=== PATIENT | female | born 1940 | race Caucasian/White ===

== ENCOUNTER 2016-07-28 10:48 | Inpatient (IN) | payer MEDICARE, SELFPAY ==
--- NOTE | 2016-07-28 11:33 | ED ---
Psych HPI - General Chief Complaint: Psychiatric Symptoms Stated Complaint: Mental Health Time Seen by Provider: 07/28/16 10:55 Source: patient, EMS Mode of arrival: EMS - History of Present Illness Initial Comments: She stated that she been thinking about bad things, suicidal ideation has crossed her mind she has a history of suicidal attempt back when she was 16 years old. She does have a history of depression and seizures sees Dr. Roy herself and her had argument she denies any alcohol or street drug use at this point. She is weak about suicidal ideation, she said she does not have any plan at this point. Denies any headaches no neck pain no chest pain or shortness of breath no other medical complaints at all - Related Data Home Medications Medication Instructions Recorded Confirmed Levothyroxine Sodium [Synthroid] 25 mcg PO DAILY 01/20/16 07/28/16 Lisinopril [Prinivil] 5 mg PO HS 01/20/16 07/28/16 metFORMIN HCL [Glucophage] 250 mg PO AC-BRKFST 01/20/16 07/28/16 Anastrozole [Arimidex] 1 mg PO HS 07/28/16 07/28/16 Cholecalciferol [Vitamin D3] 2,000 unit PO HS 07/28/16 07/28/16 Ipratropium-Albuterol Nebulize 3 ml INHALATION RT-DAILY 07/28/16 07/28/16 [Duoneb 0.5 mg-3 mg/3 ml Soln] Loratadine [Claritin] 10 mg PO DAILY 07/28/16 07/28/16 Metoprolol Tartrate [Lopressor] 25 mg PO HS 07/28/16 07/28/16 Omeprazole 40 mg PO DAILY 07/28/16 07/28/16 QUEtiapine [SEROquel] 100 mg PO HS 07/28/16 07/28/16 Zzzquil 2 cap PO HS 07/28/16 07/28/16 lamoTRIgine [LaMICtal] 25 mg PO HS 07/28/16 07/28/16 Previous Rx's Medication Instructions Recorded Aspirin 81 mg PO DAILY chew 01/29/16 Atorvastatin [Lipitor] 20 mg PO HS tab 01/29/16 Citalopram Hydrobromide [CeleXA] 20 mg PO DAILY #30 tab 08/12/16 Clopidogrel [Plavix] 75 mg PO DAILY #0 tab 01/29/16 Donepezil [Aricept] 10 mg PO HS #0 tab 01/29/16 Ferrous Sulfate [Iron (65 MG 325 mg PO DAILY@1200 tab 01/29/16 Elemental)] Folic Acid 1 mg PO DAILY@1200 tab 01/29/16 buPROPion SR [Wellbutrin SR] 100 mg PO BID #60 tablet.er 01/29/16 Allergies Allergy/AdvReac Type Severity Reaction Status Date / Time No Known Allergies Allergy Verified 07/28/16 11:17 Review of Systems ROS Statement: Those systems with pertinent positive or pertinent negative responses have been documented in the HPI. ROS Other: All systems not noted in ROS Statement are negative. Past Medical History Past Medical History: Cancer, CVA/TIA, Diabetes Mellitus, GERD/Reflux, Hyperlipidemia, Hypertension, Osteoarthritis (OA) Additional Past Medical History / Comment(s): Pt states she was having "drop attacks" before seroquel History of Any Multi-Drug Resistant Organisms: ESBL Date of last positivie culture/infection: 01/20/16 MDRO Source:: urine ESBL E.COLI Past Surgical History: Breast Surgery, Heart Catheterization, Tubal Ligation Additional Past Surgical History / Comment(s): Left mastectomy with later breast implant Past Anesthesia/Blood Transfusion Reactions: No Reported Reaction Past Psychological History: Anxiety, Bipolar, Depression Smoking Status: Current every day smoker Past Alcohol Use History: None Reported Past Drug Use History: None Reported General Exam - General Exam Comments Initial Comments: General: The patient is awake and alert, in no distress, and does not appear acutely ill. Skin: Skin is warm and dry and no rashes or lesions are noted. Eye: Pupils are equal, round and reactive to light, extra-ocular movements are intact; there is normal conjunctiva bilaterally. Ears, nose, mouth and throat: There are moist mucous membranes and no oral lesions. Neck: The neck is supple, there is no tenderness or JVD. Cardiovascular: There is a regular rate and rhythm. No murmur, rub or gallop is appreciated. Respiratory: To auscultation bilateral, no wheezing no rhonchi no distress respiratory kenyon noticed Gastrointestinal: Soft, non-distended, non-tender abdomen without masses or organomegaly noted. There is no rebound or guarding present. Bowel sounds are unremarkable. Neurological: CN II-XII intact, Cranial nerves III through XII are intact. There are no obvious motor or sensory deficits. Coordination appears grossly intact. Speech is normal. Psychiatric: Cooperative, instead depressed, positive suicidal ideation and she seems angry towards her family Limitations: no limitations Course Vital Signs 07/28/16 10:50 Temperature 97.9 F Pulse Rate 78 Respiratory 16 Rate Blood Pressure 168/79 O2 Sat by Pulse 97 Oximetry Discussed with the department of psychiatry, they intend to admit her, agree with the she will need inpatient eval Medical Decision Making - Lab Data Lab Results 07/28/16 Range/Units 11:46 Urine Opiates Screen Not Detected (NotDetected) Ur Oxycodone Screen Not Detected (NotDetected) Urine Methadone Screen Not Detected (NotDetected) Ur Propoxyphene Screen Not Detected (NotDetected) Ur Barbiturates Screen Not Detected (NotDetected) U Tricyclic Antidepress Detected H (NotDetected) Ur Phencyclidine Scrn Not Detected (NotDetected) Ur Amphetamines Screen Not Detected (NotDetected) U Methamphetamines Scrn Not Detected (NotDetected) U Benzodiazepines Scrn Detected H (NotDetected) Urine Cocaine Screen Not Detected (NotDetected) U Marijuana (THC) Screen Not Detected (NotDetected) Disposition Clinical Impression: Depression, Suicidal ideation Disposition: ADMITTED IP TO THIS HOSP Condition: Good
[2016-07-28] MEDS ORDERED: MAGNESIUM HYDROXIDE 2,400 MG/10 ML CUP PO PRN (14:59)
[2016-07-28] MEDS ORDERED: ACETAMINOPHEN TAB 325 MG TAB PO PRN (14:59)
[2016-07-28] MEDS ORDERED: MAG HYDROX/AL HYDROX/SIMETH 30 ML CUP PO PRN (14:59)
[2016-07-28] MEDS: NICOTINE 21MG/24HR PATCH TRANSDERM SCH (16:02)
[2016-07-28 18:06] LABS: Glucose,Whole Blood 104 mg/dL (75-99)
[2016-07-28 19:58] LABS: Glucose,Whole Blood 120 mg/dL (75-99)
[2016-07-28] MEDS: diphenhydrAMINE 25 MG CAP PO SCH (20:45)
[2016-07-28] MEDS: DONEPEZIL 10 MG TAB PO SCH (20:45)
[2016-07-28] MEDS: LISINOPRIL 5 MG TAB PO SCH (20:45)
[2016-07-28] MEDS: METOPROLOL TARTRATE 25 MG TAB PO SCH (20:45)
[2016-07-28] MEDS: QUEtiapine 100 MG TAB PO SCH (20:45)
[2016-07-28] MEDS: ATORVASTATIN 20 MG TAB PO SCH (20:45)
[2016-07-28] MEDS: ANASTROZOLE 1 MG TAB PO SCH (20:46)
[2016-07-28] MEDS: CHOLECALCIFEROL 1,000 UNIT TAB PO SCH (20:46)
[2016-07-28] MEDS: buPROPion SR 100 MG TABLET.ER PO SCH (20:46)
[2016-07-28] MEDS: lamoTRIgine 25 MG TAB PO SCH (20:46)
[2016-07-28] MEDS ORDERED: cloNIDine HCL 0.1 MG TAB PO STA (22:32)
[2016-07-29] MEDS: LEVOTHYROXINE 25 MCG TAB PO SCH (05:43)
[2016-07-29] MEDS: PANTOPRAZOLE 40 MG TABLET PO SCH (08:05)
[2016-07-29] MEDS: metFORMIN 500 MG TAB PO SCH (08:05)
[2016-07-29 10:08] LABS: Anisocytosis Slight; Basophils # (A) 0.1 k/uL (0-0.2); Basophils % (A) 1 %; CH 30.5; CHCM 32.1; Eosinophils # (A) 0.3 k/uL (0-0.7); Eosinophils % (A) 3 %; HDW 2.65; HGB 10.7 gm/dL (11.4-16.0); Luc # (Auto) 0.25; Luc % (Auto) 3; Lymphocytes # (A) 2.1 k/uL (1.0-4.8); Lymphocytes % (A) 24 %; MCHC 31.4 g/dL (31.0-37.0); MCV 95.4 fL (80.0-100.0); Mean Platelet Volume 6.8; Monocytes # (A) 0.3 k/uL (0-1.0); Monocytes % (A) 4 %; Neutrophils # (A) 5.8 k/uL (1.3-7.7); Neutrophils % (A) 66 %; RBC 3.56 m/uL (3.80-5.40); RDW 16.3 % (11.5-15.5); WBC 8.9 k/uL (3.8-10.6); WBC (Perox) 9.42
[2016-07-29] MEDS: LORATADINE 10 MG TAB PO SCH (10:13)
[2016-07-29] MEDS: buPROPion SR 100 MG TABLET.ER PO SCH ×2 (10:13→20:51)
[2016-07-29] MEDS: CLOPIDOGREL 75 MG TAB PO SCH (10:13)
[2016-07-29] MEDS: NICOTINE 21MG/24HR PATCH TRANSDERM SCH (10:13)
[2016-07-29] MEDS: ASPIRIN 81 MG CHEW PO SCH (10:13)
[2016-07-29] MEDS: CITALOPRAM HYDROBROMIDE 20 MG TAB PO SCH (10:13)
[2016-07-29] MEDS: IPRATROPIUM-ALBUTEROL 3 ML NEB INHALATION SCH (10:20)
--- NOTE | 2016-07-29 10:22 | P.HP ---
Psychiatric H&P - . History & Physical: Allergies Allergy/AdvReac Type Severity Reaction Status Date / Time No Known Allergies Allergy Verified 07/28/16 11:17 Vital Signs Temp 97.5 F L 07/29/16 07:17 Pulse 64 07/29/16 07:17 Resp 16 07/29/16 07:17 BP 115/59 07/29/16 07:17 Pulse Ox 93 L 07/29/16 07:17 Intake & Output 07/28/16 07/29/16 07/29/16 18:59 06:59 18:59 Weight 68.2 kg Laboratory Last Values WBC 8.9 k/uL (3.8-10.6) 07/29/16 09: RBC 3.56 m/uL (3.80-5.40) L 07/29/16 09:27 Hgb 10.7 gm/dL (11.4-16.0) L 07/29/16 09:27 Hct 34.0 % (34.0-46.0) 07/29/16 09: MCV 95.4 fL (80.0-100.0) 07/29/16 09: MCH 30.0 pg (25.0-35.0) 07/29/16 09: MCHC 31.4 g/dL (31.0-37.0) 07/29/16 09: RDW 16.3 % (11.5-15.5) H 07/29/16 09:27 Plt Count 305 k/uL (150-450) 07/29/16 09: Neutrophils % 66 % 07/29/16 09: Lymphocytes % 24 % 07/29/16 09:27 Monocytes % 4 % 07/29/16 09:27 Eosinophils % 3 % 07/29/16 09:27 Basophils % 1 % 07/29/16 09:27 Neutrophils # 5.8 k/uL (1.3-7.7) 07/29/16 09: Lymphocytes # 2.1 k/uL (1.0-4.8) 07/29/16 09: Monocytes # 0.3 k/uL (0-1.0) 07/29/16 09: Eosinophils # 0.3 k/uL (0-0.7) 07/29/16 09: Basophils # 0.1 k/uL (0-0.2) 07/29/16 09:27 Anisocytosis Slight 07/29/16 09:27 POC Glucose (mg/dL) 120 mg/dL (75-99) H 07/28/16 19:55 POC Glu Perinatology Physician ID Edmar Olmos 07/28/16 19:55 Urine Opiates Screen Not Detected (NotDetected) 07/28/16 11:46 Ur Oxycodone Screen Not Detected (NotDetected) 07/28/16 11:46 Urine Methadone Screen Not Detected (NotDetected) 07/28/16 11:46 Ur Propoxyphene Screen Not Detected (NotDetected) 07/28/16 11:46 Ur Barbiturates Screen Not Detected (NotDetected) 07/28/16 11:46 U Tricyclic Antidepress Detected (NotDetected) H 07/28/16 11:46 Ur Phencyclidine Scrn Not Detected (NotDetected) 07/28/16 11:46 Ur Amphetamines Screen Not Detected (NotDetected) 07/28/16 11:46 U Methamphetamines Scrn Not Detected (NotDetected) 07/28/16 11:46 U Benzodiazepines Scrn Detected (NotDetected) H 07/28/16 11:46 Urine Cocaine Screen Not Detected (NotDetected) 07/28/16 11:46 U Marijuana (THC) Screen Not Detected (NotDetected) 07/28/16 11:46 07/29/16 10:10 IDENTIFYING DATA: This patient is a 75-year-old female who presented to the emergency room reporting suicidal thoughts and feeling overwhelmed. She was subsequently admitted to the mental health unit. HPI: The patient has a history of numerous inpatient admissions. She presents reporting acute suicidal ideation and tells me today that she feels that she is here because of problems with her . She states "he is on my case" and "we are not getting along". These feelings triggered suicidal thoughts and she did not report feeling safe. She does have a clear history of major depressive episodes. I was able to review psychiatric evaluations that were performed on this unit from March 2014 and November 2014. The diagnoses differed between major depressive disorder and bipolar disorder. There is documentation of some cognitive impairment. The patient is unable to provide any history regarding hypomanic or manic episodes but does endorse being depressed. She is not aware of her current psychotropic medications and Adama me to call her . She reports that she is under the care of Dr. Rubio her outpatient psychiatrist and saw him as recently as last week. She endorses some sleep disturbance appetite stable. She states she feels very frightful when she is alone. She endorses some visual hallucinations at times where in the dark she thinks there may be shadows of men in the room and they will disappear when the latest turned on. At time she feels she hears knocking on the door and no one is there when she checks it. She reports no feelings of anxiety or anxiousness she is endorsing no panic attacks. The patient presents as an impaired historian to some extent. She states there are no firearms at home. PAST PSYCHIATRIC HISTORY: As an estimate she's had approximately 8 inpatient admissions. Her last 2 were in November 2014 in March 2014. She has a remote history of a suicide attempt via overdose numerous years ago. We believe she is currently on Celexa 20 mg daily, Wellbutrin SR 100 mg twice daily, Aricept 10 mg daily, Lamictal 25 mg at bedtime, Seroquel 100 mg at bedtime. She has also previously been treated with Lexapro and Wellbutrin XL in the past. She is unable to provide any other history regarding medications. She reports seeing Dr. Rubio for psychiatric services and works with a therapist named Daquan at [facility]. PMH: The patient is unable to provide any information. It appears she has a history of TIA/stroke, GERD, diabetes, hyperlipidemia, hypertension, osteoarthritis, she reports a recent abdominal surgery that may have involved her aorta. She is unsure if it was a repair of an aneurysm. ALLERGIES: NO KNOWN DRUG ALLERGIES MEDICATIONS: Refer to [facility] CHEMICAL DEPENDENCY HISTORY: She reports no use of alcohol or illicit drugs she' s never been placed in residential treatment for chemical dependency reasons FAMILY PSYCHIATRIC HISTORY: Her son has unspecified mental illness she states he is homeless down in [place], no suicides in the family FAMILY CHEMICAL DEPENDENCY HISTORY: None reported SOCIAL HISTORY: The patient is 75 years old she's been for 35 years. She has 2 children a daughter who lives in [facility] and a son who lives in [place] she is retired. 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 She has a high school education and an associates degree. No history of service. She was born and raised in the [place]. She reports that her is supportive but she finds them frustrating lately. No reported legal history, no reported abuse history. MENTAL STATUS EXAM: The patient is a short statured female appearing her stated age. She is mildly disheveled hygiene fair. Eye contact staring in nature. She endorses her mood is down frustrated and overwhelmed. Affect is bland. She demonstrated no tremor or any psychomotor agitation. She presented with suicidal ideation but feels safe now in the hospital. She reports no homicidal ideation intent or plan. She is endorsing no current auditory or visual hallucinations but states she has had some in the past. She has fears of not being safe when alone. She is endorsing no racing thoughts. Speech is fluent and spontaneous nonpressured. Thought process can be perseverative and circumstantial no tangential thinking loose associations or flight of ideas. She demonstrates no verbal or physical aggressiveness. Insight and judgment limited. Cognitively she is oriented to person place and date. She was able to register 3 words after 2 trials. After delay of approximately 3 minutes she can recall one word spontaneously she got another with a verbal cue and another with a multiple choice cue there was one intrusion area and she was able to successfully draw clock erectly number it in place the hands were designated. She was able to name 5 major cities in the [place] however that did take more time than expected. She was not able to name the months of the year backwards she could name the days of the week backwards. STRENGTHS/WEAKNESSES: Strengths: Housing, income weaknesses: Impaired coping skills suspect some cognitive impairment INTELLECTUAL FUNCTIONING: Average IMPRESSIONS: [] 1. Depression unspecified, rule out major depressive disorder recurrent versus bipolar depression, rule out mild neurocognitive impairment 2. Numerous medical comorbidities 3. Psychosocial dysfunction due to psychiatric symptoms PLAN: The patient has been admitted to the mental health unit voluntarily. I have placed a call with her outpatient psychiatrist there was no answer a voicemail was left. I did place a call with her no voicemail was available to leave a message. Temporarily we will continue her Celexa 20 mg daily, Wellbutrin SR 100 mg twice daily, Aricept 10 mg daily, Lamictal 25 mg daily, Seroquel 100 mg at bedtime. She is on several psychotropic medications we will look for an opportunity to simplify her medication regimen. We will request a routine medical consultation. Her will be involved in treatment planning and discharge planning as she will allow. We will monitor her for safety and encourage her participation in the milieu. Social work will complete a psychosocial assessment. Vital signs reviewed, lab values reviewed.
[2016-07-29 10:34] LABS: Calcium 9.6 mg/dL (8.4-10.2); Potassium 3.7 mmol/L (3.5-5.1); Total Bilirubin 0.4 mg/dL (0.2-1.3); Total Protein 6.9 g/dL (6.3-8.2)
--- NOTE | 2016-07-29 11:49 | P.CONS ---
History of Present Illness - Reason for Consult Consult date: 07/29/16 Medical management Requesting physician: Logan Bell - Chief Complaint Depression with suicidal thoughts - History of Present Illness This is a 75-year-old female, patient of Dr. Leonard. She has a known past medical history of diabetes mellitus type 2, hypertension, COPD, depression and bipolar. Also history of CVA and chronic kidney disease. Patient presents to the emergency room with complaints of depression and suicidal thoughts. She's been having arguments with her . Blood pressure on admission was around 216/94. Patient reports that she was arguing even in the emergency room with her . She was given clonidine. Blood pressures have improved. She also was restarted on her home lisinopril. Blood pressure this morning is 115/ 59. Patient denies any chest pain, shortness of breath, nausea or vomiting. Denies any bowel movement changes or urinary symptoms. Denies any fevers chills or sweats. We will consulted for medical management. Review of Systems Please refer to HPI otherwise unremarkable Past Medical History Past Medical History: Cancer, CVA/TIA, Diabetes Mellitus, GERD/Reflux, Hyperlipidemia, Hypertension, Osteoarthritis (OA) Additional Past Medical History / Comment(s): Pt states she was having "drop attacks" before seroquel History of Any Multi-Drug Resistant Organisms: ESBL Year Discovered:: 01/20/16 MDRO Source:: urine ESBL E.COLI Past Surgical History: Breast Surgery, Heart Catheterization, Tubal Ligation Additional Past Surgical History / Comment(s): Left mastectomy with later breast implant Past Anesthesia/Blood Transfusion Reactions: No Reported Reaction Past Psychological History: Anxiety, Bipolar, Depression Smoking Status: Current every day smoker Past Alcohol Use History: None Reported Past Drug Use History: None Reported Medications and Allergies Home Medications Medication Instructions Recorded Confirmed Type Levothyroxine Sodium [Synthroid] 25 mcg PO DAILY 01/20/16 07/28/16 History Lisinopril [Prinivil] 5 mg PO HS 01/20/16 07/28/16 History metFORMIN HCL [Glucophage] 250 mg PO AC-BRKFST 01/20/16 07/28/16 History Anastrozole [Arimidex] 1 mg PO HS 07/28/16 07/28/16 History Cholecalciferol [Vitamin D3] 2,000 unit PO HS 07/28/16 07/28/16 History Ipratropium-Albuterol Nebulize 3 ml INHALATION RT-DAILY 07/28/16 07/28/16 History [Duoneb 0.5 mg-3 mg/3 ml Soln] Loratadine [Claritin] 10 mg PO DAILY 07/28/16 07/28/16 History Metoprolol Tartrate [Lopressor] 25 mg PO HS 07/28/16 07/28/16 History Omeprazole 40 mg PO DAILY 07/28/16 07/28/16 History QUEtiapine [SEROquel] 100 mg PO HS 07/28/16 07/28/16 History Zzzquil 2 cap PO HS 07/28/16 07/28/16 History lamoTRIgine [LaMICtal] 25 mg PO HS 07/28/16 07/28/16 History Allergies Allergy/AdvReac Type Severity Reaction Status Date / Time No Known Allergies Allergy Verified 07/28/16 11:17 Physical Exam Vitals: Vital Signs Temp Pulse Pulse Resp BP BP Pulse Ox 07/29/16 10:32 78 07/29/16 10:20 78 07/29/16 07:17 97.5 F L 64 16 115/59 93 L 07/28/16 23:15 137/63 07/28/16 22:01 82 18 215/98 97 07/28/16 20:49 102 H 18 216/94 07/28/16 14:40 70 16 187/81 07/28/16 14:12 97.8 F 71 16 152/76 96 Intake and Output 07/28/16 07/29/16 07/29/16 22:59 06:59 14:59 Other: Weight 68.2 kg Head normocephalic Neck supple Lungs clear to auscultation bilaterally no wheezing or crackles Heart regular rate and rhythm S1-S2, no rub or gallop Abdomen is soft nontender nondistended positive bowel sounds no hepatosplenomegaly Extremities no edema Neuro alert and orientated to 3 Psychiatric disheveled flat affect Results CBC & Chem 7: 07/29/16 09:27 07/29/16 09:27 Labs: Abnormal Lab Results - Last 24 Hours (Table) 07/28/16 07/28/16 07/29/16 Range/Units 18:03 19:55 09:27 RBC 3.56 L (3.80-5.40) m/uL Hgb 10.7 L (11.4-16.0) gm/dL RDW 16.3 H (11.5-15.5) % Creatinine (0.52-1.04) mg/dL Glucose (74-99) mg/dL POC Glucose (mg/dL) 104 H 120 H (75-99) mg/dL 07/29/16 Range/Units 09:27 RBC (3.80-5.40) m/uL Hgb (11.4-16.0) gm/dL RDW (11.5-15.5) % Creatinine 1.20 H (0.52-1.04) mg/dL Glucose 132 H (74-99) mg/dL POC Glucose (mg/dL) (75-99) mg/dL Assessment and Plan Plan: 1. Depression with suicidal ideation: Patient has been admitted to the psychiatric unit. Continue with current psychiatric management 2. Hypothyroidism. Continue her Synthroid. TSH level within normal range 3. History of CVA resume Plavix 4. Chronic kidney disease stage IIIB 5. History of dementia 6. Essential hypertension with episode of accelerated hypertension present on admission. Elevated blood pressure likely due to patient's argument with her . Did show improvement with the clonidine. Lisinopril and metoprolol has been resumed. Blood pressures are currently stable. Continue to monitor. 7. History of COPD stable no evidence of exacerbation continue with her breathing treatments 8. Nicotine dependence: Counseled patient for greater than 3 minutes regarding smoking cessation. Continue nicotine patch 9. Iron deficiency Anemia: Hemoglobin of 10.7 no active signs of bleeding. We' ll check iron studies. And repeat CBC in a.m. continue her ferrous sulfate 325 mg daily for now 10. Diabetes mellitus type 2 continue metformin Thank you for this consultation. We will continue to follow along as needed. We'll follow-up with labs in a.m. Time with Patient: Greater than 30 (Greater than 50% of the total time spent in counseling and coordination of care.I performed an examination of the patient and discussed their management with the physician Veneer Department Manager. I have reviewed the Physician Veneer Department Manager's notes and agree with the documented findings and plan of care)
[2016-07-29] MEDS: FOLIC ACID 1 MG TAB PO SCH (12:40)
[2016-07-29] MEDS: FERROUS SULFATE 325 MG TAB PO SCH (12:41)
[2016-07-29] MEDS: DONEPEZIL 10 MG TAB PO SCH (20:51)
[2016-07-29] MEDS: LISINOPRIL 5 MG TAB PO SCH (20:51)
[2016-07-29] MEDS: CHOLECALCIFEROL 1,000 UNIT TAB PO SCH (20:51)
[2016-07-29] MEDS: ANASTROZOLE 1 MG TAB PO SCH (20:51)
[2016-07-29] MEDS: ATORVASTATIN 20 MG TAB PO SCH (20:51)
[2016-07-29] MEDS: METOPROLOL TARTRATE 25 MG TAB PO SCH (20:52)
[2016-07-29] MEDS: diphenhydrAMINE 25 MG CAP PO SCH (21:10)
[2016-07-29] MEDS: QUEtiapine 100 MG TAB PO SCH (21:10)
[2016-07-29] MEDS: lamoTRIgine 25 MG TAB PO SCH (21:13)
[2016-07-29 22:13] LABS: Glucose,Whole Blood 144 mg/dL (75-99)
[2016-07-30] MEDS: LEVOTHYROXINE 25 MCG TAB PO SCH (06:12)
[2016-07-30 06:19] LABS: Glucose,Whole Blood 125 mg/dL (75-99)
[2016-07-30] MEDS: INSULIN LISPRO (humaLOG) 300 UNIT/3 ML VIAL SQ SCH ×4 (08:07→20:50)
[2016-07-30] MEDS: metFORMIN 500 MG TAB PO SCH (08:08)
[2016-07-30] MEDS: PANTOPRAZOLE 40 MG TABLET PO SCH (08:44)
[2016-07-30] MEDS: LORATADINE 10 MG TAB PO SCH (08:45)
[2016-07-30] MEDS: CITALOPRAM HYDROBROMIDE 20 MG TAB PO SCH (08:45)
[2016-07-30] MEDS: ASPIRIN 81 MG CHEW PO SCH (08:45)
[2016-07-30] MEDS: buPROPion SR 100 MG TABLET.ER PO SCH ×2 (08:45→20:53)
[2016-07-30] MEDS: CLOPIDOGREL 75 MG TAB PO SCH (08:45)
[2016-07-30] MEDS: NICOTINE 21MG/24HR PATCH TRANSDERM SCH (08:46)
[2016-07-30 08:55] LABS: Anisocytosis Slight; Basophils # (A) 0.1 k/uL (0-0.2); Basophils % (A) 1 %; CH 30.4; CHCM 31.9; Eosinophils # (A) 0.4 k/uL (0-0.7); Eosinophils % (A) 4 %; HCT 34.9 % (34.0-46.0); HDW 2.63; HGB 11.3 gm/dL (11.4-16.0); Luc # (Auto) 0.25; Luc % (Auto) 3; Lymphocytes # (A) 2.9 k/uL (1.0-4.8); Lymphocytes % (A) 30 %; MCH 30.9 pg (25.0-35.0); MCHC 32.2 g/dL (31.0-37.0); MCV 95.9 fL (80.0-100.0); Mean Platelet Volume 6.3; Monocytes # (A) 0.3 k/uL (0-1.0); Monocytes % (A) 3 %; Neutrophils # (A) 5.8 k/uL (1.3-7.7); Neutrophils % (A) 60 %; RBC 3.64 m/uL (3.80-5.40); RDW 16.4 % (11.5-15.5); WBC 9.7 k/uL (3.8-10.6)
--- NOTE | 2016-07-30 12:08 | P.PN ---
Progress Note - Text Interval history: The patient is found at the front desk representative she follows me to an interview room. She states her mood is good and she would like to be discharged today. We discussed that that is not part of our plan and she requires further evaluation. I did have the opportunity to speak with Dr. Andres her outpatient psychiatrist. He had just recently seen the patient last week. He recommended no further medication changes but thought that the dynamic between her and her was the greatest precipitant for her presenting to the hospital. The patient reports that she slept last evening she states her appetite is stable. She is reporting no current hallucinations. Mental status exam: The patient is alert she seated calmly in the chair she reports her mood is "good". Affect is brighter. She is endorsing no acute suicidal or homicidal ideation. She does recognize that her and her have been having more verbal disagreements. She is reporting no hallucinations at this time. She does seem to struggle with some short-term memory impairment. There is no verbal or physical aggressiveness. Plan: The patient will continue on her current psychotropic medications we will consider titrating the Lamictal further for further stabilization of mood. Social work will be asked to arrange a support meeting involving family members. We will monitor her for safety and encourage her participation in the milieu. Vital signs reviewed.
[2016-07-30 12:12] LABS: Glucose,Whole Blood 93 mg/dL (75-99)
[2016-07-30] MEDS: IPRATROPIUM-ALBUTEROL 3 ML NEB INHALATION SCH (12:36)
[2016-07-30] MEDS: FERROUS SULFATE 325 MG TAB PO SCH (12:47)
[2016-07-30] MEDS: FOLIC ACID 1 MG TAB PO SCH (12:47)
[2016-07-30 13:17] LABS: Hemoglobin A1C 6.4 % (4.2-6.1)
[2016-07-30 13:51] VITALS: BMI 27.5
[2016-07-30 17:43] LABS: Glucose,Whole Blood 99 mg/dL (75-99)
[2016-07-30 20:38] LABS: Glucose,Whole Blood 146 mg/dL (75-99)
[2016-07-30] MEDS: DONEPEZIL 10 MG TAB PO SCH (20:53)
[2016-07-30] MEDS: METOPROLOL TARTRATE 25 MG TAB PO SCH (20:53)
[2016-07-30] MEDS: LISINOPRIL 5 MG TAB PO SCH (20:53)
[2016-07-30] MEDS: ATORVASTATIN 20 MG TAB PO SCH (20:53)
[2016-07-30] MEDS: ANASTROZOLE 1 MG TAB PO SCH (20:53)
[2016-07-30] MEDS: CHOLECALCIFEROL 1,000 UNIT TAB PO SCH (20:53)
[2016-07-30] MEDS: lamoTRIgine 25 MG TAB PO SCH (20:55)
[2016-07-30] MEDS: QUEtiapine 100 MG TAB PO SCH (20:55)
[2016-07-30] MEDS: diphenhydrAMINE 25 MG CAP PO SCH (20:55)
[2016-07-31 06:32] LABS: Glucose,Whole Blood 126 mg/dL (75-99)
[2016-07-31] MEDS: LEVOTHYROXINE 25 MCG TAB PO SCH (06:44)
[2016-07-31] MEDS: PANTOPRAZOLE 40 MG TABLET PO SCH (08:08)
[2016-07-31] MEDS: INSULIN LISPRO (humaLOG) 300 UNIT/3 ML VIAL SQ SCH ×4 (08:08→21:47)
[2016-07-31] MEDS: metFORMIN 500 MG TAB PO SCH (08:08)
[2016-07-31] MEDS: IPRATROPIUM-ALBUTEROL 3 ML NEB INHALATION SCH (08:45)
[2016-07-31] MEDS: NICOTINE 21MG/24HR PATCH TRANSDERM SCH (09:53)
[2016-07-31] MEDS: ASPIRIN 81 MG CHEW PO SCH (09:53)
[2016-07-31] MEDS: CITALOPRAM HYDROBROMIDE 20 MG TAB PO SCH (09:54)
[2016-07-31] MEDS: buPROPion SR 100 MG TABLET.ER PO SCH ×2 (09:54→21:49)
[2016-07-31] MEDS: LORATADINE 10 MG TAB PO SCH (09:54)
[2016-07-31] MEDS: CLOPIDOGREL 75 MG TAB PO SCH (09:54)
--- NOTE | 2016-07-31 10:47 | P.PN ---
Progress Note - Text Interval history: The patient's is found in the hallway she follows me to an interview room. She reports she had an unpleasant visit with her last evening. She states after enough time elapsed she told him to go home. Apparently they were arguing over her close being dirty in the dresser. She states that she did not invite him to come up again tonight. Without insight subsequently she asks when she can go home. She reports sleeping and eating adequately. She reports compliant with medication. Mental status exam: The patient is alert upon approach she does not recall who I am but then later's states "you're my doctor". She has trouble recalling my name despite this being her third visit. She reports a frustrated mood she is reporting no suicidal or homicidal ideation. She has a mildly disheveled appearance she is dressed in her own clothing. Speech is spontaneous nonpressured. She is brief and her speech and therefore it appears linear. Insight and judgment are limited. She is oriented to place she initially names the day the week as Monday she names the correct month and year. There is no verbal or physical aggressiveness she is easily directed in the interview. Plan: The patient will continue on her current medications however I will titrate the Lamictal to 25 mg twice daily. Vital signs reviewed. We will encourage her participation in the milieu although she states she does not plan on attending many groups today. We will await input from family regarding interventions to be made prior to discharge.
[2016-07-31 12:31] LABS: Glucose,Whole Blood 92 mg/dL (75-99)
[2016-07-31] MEDS: FERROUS SULFATE 325 MG TAB PO SCH (12:41)
[2016-07-31] MEDS: FOLIC ACID 1 MG TAB PO SCH (12:41)
[2016-07-31 17:44] LABS: Glucose,Whole Blood 100 mg/dL (75-99)
[2016-07-31 20:07] LABS: Glucose,Whole Blood 129 mg/dL (75-99)
[2016-07-31] MEDS: ANASTROZOLE 1 MG TAB PO SCH (21:48)
[2016-07-31] MEDS: ATORVASTATIN 20 MG TAB PO SCH (21:49)
[2016-07-31] MEDS: CHOLECALCIFEROL 1,000 UNIT TAB PO SCH (21:50)
[2016-07-31] MEDS: lamoTRIgine 25 MG TAB PO SCH (21:51)
[2016-07-31] MEDS: diphenhydrAMINE 25 MG CAP PO SCH (21:51)
[2016-07-31] MEDS: LISINOPRIL 5 MG TAB PO SCH (21:51)
[2016-07-31] MEDS: METOPROLOL TARTRATE 25 MG TAB PO SCH (21:51)
[2016-07-31] MEDS: DONEPEZIL 10 MG TAB PO SCH (21:51)
[2016-07-31] MEDS: QUEtiapine 100 MG TAB PO SCH (21:52)
[2016-08-01 05:55] LABS: Glucose,Whole Blood 124 mg/dL (75-99)
[2016-08-01] MEDS: LEVOTHYROXINE 25 MCG TAB PO SCH (05:55)
[2016-08-01] MEDS: INSULIN LISPRO (humaLOG) 300 UNIT/3 ML VIAL SQ SCH ×4 (08:49→20:35)
[2016-08-01] MEDS: IPRATROPIUM-ALBUTEROL 3 ML NEB INHALATION SCH (08:56)
[2016-08-01] MEDS: NICOTINE 21MG/24HR PATCH TRANSDERM SCH (09:36)
[2016-08-01] MEDS: metFORMIN 500 MG TAB PO SCH (09:36)
[2016-08-01] MEDS: buPROPion SR 100 MG TABLET.ER PO SCH ×2 (09:37→20:50)
[2016-08-01] MEDS: ASPIRIN 81 MG CHEW PO SCH (09:37)
[2016-08-01] MEDS: CLOPIDOGREL 75 MG TAB PO SCH (09:37)
[2016-08-01] MEDS: PANTOPRAZOLE 40 MG TABLET PO SCH (09:37)
[2016-08-01] MEDS: LORATADINE 10 MG TAB PO SCH (09:38)
[2016-08-01] MEDS: lamoTRIgine 25 MG TAB PO SCH ×2 (09:38→20:50)
[2016-08-01] MEDS: CITALOPRAM HYDROBROMIDE 20 MG TAB PO SCH (09:38)
--- NOTE | 2016-08-01 09:57 | P.PN ---
Progress Note - Text Interval history: The patient is found in the dining room she follows me to an interview room. She continues to voice her desire to be discharged. She did not have a visit from her last evening. A support meeting has not yet been completed. The patient is endorsing no symptoms. Yesterday I titrated her Lamictal for further mood stabilization hoping it would assist in reducing irritability and agitation especially in her home environment. Mental status exam: The patient is alert she seated calmly in the chair. She continues to ask when she will be discharged reflecting a lack of insight into her presenting symptoms. She reports that she did sleep last night appetite is stable. She has not been attending groups and states "I have no interest". She seems to not remember some of the details of our previous conversations each day. She demonstrates no verbal or physical aggressiveness. Affect is constricted. She reports no hallucinations or specific delusions. She does not present hypomanic or manic during our sessions. Overall insight and judgment is limited. Plan: We will continue the patient's psychotropic medications as written. Social work will be asked to arrange a support meeting. We need to evaluate's her ability to successfully reside with her in their home. We will continue to monitor her for safety and encourage her participation in the milieu. Vital signs reviewed.
[2016-08-01] MEDS: FOLIC ACID 1 MG TAB PO SCH (12:39)
[2016-08-01] MEDS: FERROUS SULFATE 325 MG TAB PO SCH (12:39)
[2016-08-01 12:50] LABS: Glucose,Whole Blood 101 mg/dL (75-99)
[2016-08-01 17:26] LABS: Glucose,Whole Blood 105 mg/dL (75-99)
[2016-08-01 19:54] LABS: Glucose,Whole Blood 137 mg/dL (75-99)
[2016-08-01] MEDS: ANASTROZOLE 1 MG TAB PO SCH (20:49)
[2016-08-01] MEDS: diphenhydrAMINE 25 MG CAP PO SCH (20:50)
[2016-08-01] MEDS: CHOLECALCIFEROL 1,000 UNIT TAB PO SCH (20:50)
[2016-08-01] MEDS: DONEPEZIL 10 MG TAB PO SCH (20:50)
[2016-08-01] MEDS: ATORVASTATIN 20 MG TAB PO SCH (20:50)
[2016-08-01] MEDS: LISINOPRIL 5 MG TAB PO SCH (20:51)
[2016-08-01] MEDS: METOPROLOL TARTRATE 25 MG TAB PO SCH (20:51)
[2016-08-01] MEDS: QUEtiapine 100 MG TAB PO SCH (20:51)
[2016-08-01 20:54] VITALS: RESP 18
[2016-08-02] MEDS: LEVOTHYROXINE 25 MCG TAB PO SCH (06:03)
[2016-08-02 06:41] VITALS: BP 145/64; PULSE 63; TEMP 97.5
[2016-08-02 06:41] LABS: Glucose,Whole Blood 134 mg/dL (75-99)
[2016-08-02] MEDS: INSULIN LISPRO (humaLOG) 300 UNIT/3 ML VIAL SQ SCH ×2 (08:55→13:38)
[2016-08-02] MEDS: NICOTINE 21MG/24HR PATCH TRANSDERM SCH (09:02)
[2016-08-02] MEDS: metFORMIN 500 MG TAB PO SCH (09:02)
[2016-08-02] MEDS: ASPIRIN 81 MG CHEW PO SCH (09:02)
[2016-08-02] MEDS: PANTOPRAZOLE 40 MG TABLET PO SCH (09:02)
[2016-08-02] MEDS: CLOPIDOGREL 75 MG TAB PO SCH (09:03)
[2016-08-02] MEDS: FERROUS SULFATE 325 MG TAB PO SCH (09:03)
[2016-08-02] MEDS: CITALOPRAM HYDROBROMIDE 20 MG TAB PO SCH (09:03)
[2016-08-02] MEDS: LORATADINE 10 MG TAB PO SCH (09:03)
[2016-08-02] MEDS: lamoTRIgine 25 MG TAB PO SCH (09:03)
[2016-08-02] MEDS: buPROPion SR 100 MG TABLET.ER PO SCH (09:03)
--- NOTE | 2016-08-02 10:01 | P.DS ---
Providers Date of admission: 07/28/16 13:57 Expected date of discharge: 08/02/16 Attending physician: Logan Bell Consults: 07/28/16 14:59 Consult Physician Routine Consulting Provider: Tony Lynch Consult Reason/Comments: H and P and medical management Do you want consulting provider notified?: Yes Primary care physician: Kavita Leonard - Discharge Diagnosis(es) (1) Depression Current Visit: Yes Status: Acute Priority: High Hospital Course: Brief summary of admission note: This patient is a 75-year-old female who presented to the emergency room reporting suicidal thoughts and feeling overwhelmed. She stated she was frustrated with her setting limits and stated "he is on my case". 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 She is under the care of for psychiatric medication. For full details please refer to my evaluation dated 07/29/2016. Summary of hospital course: The patient was admitted to the mental health unit she did sign in voluntarily. We reviewed her presenting symptoms and current psychotropic medications. Initially no changes were made to her psychotropic medications. She was continued on the Seroquel, Aricept, Celexa, Wellbutrin SR , Lamictal. I did have the opportunity to speak with her outpatient psychiatrist Dr. Andres. He was aware of the interpersonal challenges between the patient and her . During the hospitalization I did titrate the Lamictal further to 25 mg twice daily no other medication changes were made. He had recently seen the patient and plans to continue working with her as an outpatient. Social work was able to speak with the patient's and there is a support meeting scheduled for this afternoon. The patient was seen in medical consultation. No new recommendations were provided. The patient demonstrated no agitated behavior on the mental health unit. She remained directable she attended some groups but chose to miss several. She reported a resolution of any suicidal thoughts upon admission. Mental status exam: The patient is a female appearing her stated age. He is dressed in her own clothing hygiene grooming adequate. Speech is fluent spontaneous nonpressured. She reports no racing thoughts. Thought process for the most part is linear she can be briefly circumstantial. She demonstrates no loose associations or flight of ideas. She is endorsing no auditory or visual hallucinations she is endorsing no specific delusions. She does not appear hypomanic or manic at this time. Cognitively she is alert and oriented to person place and date. Cognitive abilities remain stable across the hospitalization. Insight and judgment have improved and are grossly intact. There is no psychomotor slowing or agitation she demonstrates no verbal or physical aggressiveness. Affect is appropriately expressive. Impressions 1. Depression unspecified, rule out major depressive disorder versus bipolar depression, rule out mild neurocognitive disorder 2. Numerous medical comorbidities 3. Psychosocial dysfunction due to psychiatric symptoms Plan: The patient will be discharged from the mental health unit today to return home with her following the family meeting. The patient will be continued on Wellbutrin SR 100 mg twice daily, Celexa 20 mg daily, Aricept 10 mg daily, Lamictal 25 mg twice daily, Seroquel 100 mg at bedtime. The patient will follow up with her outpatient therapist and psychiatrist social work will confirm she has an appointment. She will continue following with her primary care physician as needed. There is no imminent safety risk she is appropriate for transition to outpatient care. She is instructed to return to the hospital if any acute safety concerns. Patient Condition at Discharge: Stable Plan - Discharge Summary New Discharge Prescriptions: Citalopram Hydrobromide [CeleXA] 20 mg PO DAILY #30 tab Donepezil [Aricept] 10 mg PO HS #30 tab Nicotine 21Mg/24Hr Patch [Habitrol] 1 patch TRANSDERM DAILY #14 patch QUEtiapine [SEROquel] 100 mg PO HS #30 tab buPROPion SR [Wellbutrin SR] 100 mg PO BID #60 tablet.er lamoTRIgine [LaMICtal] 25 mg PO BID #60 tab Discharge Medication List Levothyroxine Sodium [Synthroid] 25 mcg PO DAILY 01/20/16 [History] Lisinopril [Prinivil] 5 mg PO HS 01/20/16 [History] metFORMIN HCL [Glucophage] 250 mg PO AC-[id number] 01/20/16 [History] Aspirin 81 mg PO DAILY chew 01/29/16 [Rx] Atorvastatin [Lipitor] 20 mg PO HS tab 01/29/16 [Rx] Clopidogrel [Plavix] 75 mg PO DAILY #0 tab 01/29/16 [Rx] Ferrous Sulfate [Iron (65 MG Elemental)] 325 mg PO DAILY@1200 tab 01/29/16 [Rx] Folic Acid 1 mg PO DAILY@1200 tab 01/29/16 [Rx] Anastrozole [Arimidex] 1 mg PO HS 07/28/16 [History] Cholecalciferol [Vitamin D3] 2,000 unit PO HS 07/28/16 [History] Ipratropium-Albuterol Nebulize [Duoneb 0.5 mg-3 mg/3 ml Soln] 3 ml INHALATION RT -DAILY 07/28/16 [History] Loratadine [Claritin] 10 mg PO DAILY 07/28/16 [History] Metoprolol Tartrate [Lopressor] 25 mg PO HS 07/28/16 [History] Omeprazole 40 mg PO DAILY 07/28/16 [History] Zzzquil 2 cap PO HS 07/28/16 [History] Citalopram Hydrobromide [CeleXA] 20 mg PO DAILY #30 tab 08/02/16 [Rx] Donepezil [Aricept] 10 mg PO HS #30 tab 08/02/16 [Rx] Nicotine 21Mg/24Hr Patch [Habitrol] 1 patch TRANSDERM DAILY #14 patch 08/02/16 [ Rx] QUEtiapine [SEROquel] 100 mg PO HS #30 tab 08/02/16 [Rx] buPROPion SR [Wellbutrin SR] 100 mg PO BID #60 tablet.er 08/02/16 [Rx] lamoTRIgine [LaMICtal] 25 mg PO BID #60 tab 08/02/16 [Rx] Follow up Appointment(s)/Referral(s): intake,intake [Other] - 1 Week [facility] [Outside] - 08/03/16 1:00 pm (08/03/16 at 100 w/[address]) Kavita Leonard DO [Primary Care Provider] - 1-2 days
[2016-08-02] MEDS: IPRATROPIUM-ALBUTEROL 3 ML NEB INHALATION SCH (10:53)
[2016-08-02] MEDS: FOLIC ACID 1 MG TAB PO SCH (11:59)
== END 2016-08-02 13:57 | disposition home or self-care (01) | DRG 885 ==
LOC: EC 10:48 → 3MHU 13:57
PROVIDERS: ADMIT Psychiatry & Neurology Psychiatry; ATTEND Psychiatry & Neurology Psychiatry
DX: F31.9 Bipolar disorder, unspecified (principal); E11.22 Type 2 diabetes mellitus with diabetic chronic kidney disease; R45.851 Suicidal ideations; J44.9 Chronic obstructive pulmonary disease, unspecified; E78.5 Hyperlipidemia, unspecified; F17.200 Nicotine dependence, unspecified, uncomplicated; I12.9 Hypertensive chronic kidney disease with stage 1 through stage 4 chronic kidney disease, or unspecified chronic kidney disease; K21.9 Gastro-esophageal reflux disease without esophagitis; N18.9 Chronic kidney disease, unspecified; Z79.82 Long term (current) use of aspirin; Z86.73 Personal history of transient ischemic attack (TIA), and cerebral infarction without residual deficits; Z91.5 Personal history of self-harm; Z98.82 Breast implant status; F59 Unspecified behavioral syndromes associated with physiological disturbances and physical factors
CPT/HCPCS: 80053; 80306; 82075; 82728; 83036; 83540; 83550; 84443; 85025; 94640; 99285

== ENCOUNTER → 2017-02-01 | Outpatient (CLI) | payer MEDICARE, SELFPAY ==
[2017-02-01 10:42] LABS: CH 29.9; CHCM 31.7; HCT 37.1 % (34.0-46.0); HDW 2.46; MCH 30.7 pg (25.0-35.0); MCHC 32.3 g/dL (31.0-37.0); MCV 95.1 fL (80.0-100.0); Mean Platelet Volume 6.9; RDW 14.6 % (11.5-15.5); WBC 7.8 k/uL (3.8-10.6)
[2017-02-01 10:45] LABS: Calcium 9.9 mg/dL (8.4-10.2); Potassium 4.2 mmol/L (3.5-5.1)
[2017-02-01 13:18] LABS: Hemoglobin A1C 6.3 % (4.2-6.1)
== END | disposition home or self-care (01) ==
LOC: LABWHC1 09:57
PROVIDERS: ATTEND Psychiatry & Neurology Psychiatry
DX: E03.9 Hypothyroidism, unspecified (principal); E11.9 Type 2 diabetes mellitus without complications; Z79.899 Other long term (current) drug therapy
CPT/HCPCS: 36415; 80048; 83036; 84439; 84443; 84460; 85027

== ENCOUNTER → 2017-06-23 | Outpatient (CLI) | payer MEDICARE, OTHER ==
[2017-06-23 13:47] LABS: T4, Free (Free Thyroxine) 0.91 ng/dL (0.78-2.19)
[2017-06-23 21:09] LABS: Hemoglobin A1C 5.6 % (4.0-6.0)
[2017-06-26 13:58] LABS: Albumin 3.75 g/dL (3.80-4.90); Gamma Globulin 1.61 g/dL (0.70-1.50)
[2017-06-26 14:53] LABS: Protein, Total 7.8 g/dL (6.2-8.2)
[2017-06-27 09:12] LABS: Lyme IgG/IgM 0.1 Index
== END | disposition home or self-care (01) ==
LOC: LABWHC1 11:55
PROVIDERS: ATTEND Psychiatry & Neurology Neurology
DX: G62.9 Polyneuropathy, unspecified (principal)
CPT/HCPCS: 36415; 82607; 82747; 83036; 84165; 84439; 84443; 85652; 86038; 86618; 86780

== ENCOUNTER 2022-01-27 12:40 | Day surgery (SDC) | payer MEDICARE ==
[~2022-01-27 12:40] MED LIST: ALBUTEROL NEB (CONC) 2.5 MG/0.5 ML INHALATION ONE; LACTATED RINGERS 1,000 ML IV SCH; LIDOCAINE 1% (10MG/ML) FOR IV START INTRADERMA PRN; LIDOCAINE 2% (PF) 20 MG/ML 5 ML VIAL INHALATION ONE; LIDOCAINE VISCOUS 300 MG/15 ML CUP MUCOUS MEM ONE; ONDANSETRON 4 MG/2 ML VIAL IVP PRN
[2022-01-27 13:15] VITALS: TEMP 97
[2022-01-27 13:31] LABS: Glucose,Whole Blood 102 mg/dL (70-110)
[2022-01-27] MEDS ORDERED: fentaNYL (PF) 50 MCG/ML 2 ML AMP ONE (14:11)
[2022-01-27] MEDS ORDERED: LIDOCAINE 2% INJ 20 MG/ML (2 ML VIAL) ONE (14:11)
[2022-01-27] MEDS ORDERED: SUCCINYLCHOLINE CHLORIDE 200 MG/10 ML VIAL IV ONE (14:11)
[2022-01-27] MEDS ORDERED: ROCURONIUM 10 MG/ML (5 ML VIAL) IV ONE (14:11)
[2022-01-27] MEDS ORDERED: PHENYLEPHRINE-0.9% NACL SYG 1,000 MCG/10 ML SYRINGE ONE (14:11)
[2022-01-27] MEDS ORDERED: PROPOFOL 10 MG/ML 20 ML VIAL IV ONE (14:11)
[2022-01-27] MEDS ORDERED: ALBUTEROL NEBULIZED 2.5 MG/3 ML INHALATION ONE (15:10)
--- NOTE | 2022-01-27 15:17 | P.PCN ---
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 Endobronchial tumor circumferentially going in the distal bronchus intermedius and right lower lobe bronchus Procedure(s) Performed: Flexible bronchoscopy Endobronchial biopsy, brushing and lavage of the left upper lobe Endobronchial biopsy, brushing and lavage of the right lower lobe Anesthesia: FLAKO Surgeon: Nilson Bhakta Estimated Blood Loss (ml): 0 Pathology: other Condition: stable Disposition: same day Operative Findings: This procedure was done under general anesthesia. The patient was intubated and placed on a mechanical ventilation. The intubation process was done by SPECIAL EDUCATION TEACHING ASSISTANT without any major difficulties. The patient was intubated by #8 orotracheal tube. After achieving adequate oxygenation and ventilation, the procedure was initiated. An adapter was attached and orotracheal tube and following that the flexible bronchoscope was easily passed into the lower trachea. The distal trachea and the main jacque was within normal limits. The bronchoscope was then removed and the left-sided and left mainstem bronchus was patent yet distally the left mainstem bronchus was becoming progressively more tapered and narrowed due to extrinsic compression especially from his lateral michaels. The left upper lobe bronchus was completely plugged by endobronchial tumor and extrinsic compression. I was unable to pass the bronchoscope into the left upper lobe bronchus. The secondary jacque the left upper and left lower lobe bronchus was also swollen and irregular and there was significant narrowing of the left lower lobe bronchus by reduction of the airway orifice bioprosthesis 70% of his normal size. I was able to pass the bronchoscope through the left lower lobe bronchus and the various segments were seen. Note that the segmental airways were also narrowed probably by extrinsic compression. The bronchoscope was then moved to the right side. Right mainstem bronchus was patent. Right upper lobe bronchus and the different segments were seen and there were patent. The bronchus intermedius was being tapered distally and there was a normal orifice to the right middle lobe bronchus. Nevertheless, the right lower lobe bronchus was circumferentially occupied by mucosal irregularities and possibly some endobronchial tumor in combination with purulent material occupying the jean claude or surface. Therapeutic airway suctioning was done. Right lower lobe bronchus was inspected closely. The airway lumen was reviewed by at least 50%. Unable to identify the distal segment of the right lower lobe. This is because of the significant anatomic distortion of present by the endobronchial irregularities in the right lower lobe bronchus. After this adequate inspection, the bronchoscope was moved to the left upper lobe and endobronchial biopsies of the left upper lobe was done. I also performed and the bronchial brushing and the bronchioloalveolar lavage of the left upper lobe was also done. Unable to visualize any of the segments of the left upper lobe. Bronchoscope was then moved to the right lower lobe bronchus and endobronchial biopsies, brushing and washing of the right lower lobe bronchus was done under direct visualization. There was bleeding was controlled locally with ice cold saline. At the completion of the procedure, no further bleeding was identified. Bronchoscope was removed. The patient was extubated and transferred to recovery in stable condition. Based on my airway inspection, the patient has significant compromise of her lungs as the patient has a large loculated left upper lobe bronchus, there is impending collapse of the left lower lobe basal significant narrowing of the left lower lobe bronchus and there is also impending collapse of the right lower lobe bronchus. Awaiting final pathology. We'll be coordinating her care with oncology.
[2022-01-27 15:44] VITALS: RESP 18
[2022-01-27 16:23] VITALS: BP 91/59; PULSE 86
== END 2022-01-27 16:35 | disposition home or self-care (01) ==
LOC: ORWHC2ENDO 12:40
PROVIDERS: ATTEND Internal Medicine Critical Care Medicine
DX: C34.12 Malignant neoplasm of upper lobe, left bronchus or lung (principal); F03.90 Unspecified dementia, unspecified severity, without behavioral disturbance, psychotic disturbance, mood disturbance, and anxiety; Z85.3 Personal history of malignant neoplasm of breast; Z90.12 Acquired absence of left breast and nipple; F31.9 Bipolar disorder, unspecified; I73.9 Peripheral vascular disease, unspecified; E03.9 Hypothyroidism, unspecified; J44.9 Chronic obstructive pulmonary disease, unspecified; Z87.891 Personal history of nicotine dependence; G20 Parkinson's disease; Z98.41 Cataract extraction status, right eye; I65.29 Occlusion and stenosis of unspecified carotid artery; I12.9 Hypertensive chronic kidney disease with stage 1 through stage 4 chronic kidney disease, or unspecified chronic kidney disease; K21.9 Gastro-esophageal reflux disease without esophagitis; E11.22 Type 2 diabetes mellitus with diabetic chronic kidney disease; N18.9 Chronic kidney disease, unspecified; Z98.42 Cataract extraction status, left eye; Z90.710 Acquired absence of both cervix and uterus; Z98.51 Tubal ligation status; Z98.890 Other specified postprocedural states; Z86.73 Personal history of transient ischemic attack (TIA), and cerebral infarction without residual deficits; Z79.84 Long term (current) use of oral hypoglycemic drugs; Z79.02 Long term (current) use of antithrombotics/antiplatelets; Z79.890 Hormone replacement therapy; Z79.899 Other long term (current) drug therapy
CPT/HCPCS: 87798 ×3; 87496; 87498; 87529; 88104; 88305; 88342; 87252; 87502; 87634; 88341; 87070; 87205; 87116; 87102; 87206; 31625; 31623; 31624; J0330; J3010; J2370; J2704; J2001; 87075

== ENCOUNTER → 2022-02-04 | Outpatient (CLI) | payer MEDICARE ==
--- NOTE | 2022-02-05 23:20 | PE ---
EXAMINATION TYPE: PET CT fusion skull to thigh DATE OF EXAM: 02/04/2022 COMPARISON: NONE at this institution. HISTORY: Solitary pulmonary nodule. TECHNIQUE: Following the intravenous administration of 12.7 mCi of F-18 FDG, whole body images are p erformed from the skull base to the midthigh. Images are reviewed on the computer in the coronal, ax ial, and sagittal planes. Reconstructed rotating images are created on independent workstation and r eviewed on the computer. A localization and attenuation correction CT is performed in conjunction w ith the PET scan. Blood glucose level equals 105 SCAN: Initial Scan FINDINGS: SKULL BASE AND NECK: No areas of abnormal hypermetabolic uptake. CHEST, MEDIASTINUM, AND HILAR REGION: There is background Mild to moderate underlying emphysematous change felt present. There is anterior left apical consolid ation extending all the way to the hilum with abrupt occlusion of the left upper lobe bronchus due to partially calcified heterogeneous hypermetabolic mass difficult to accurately measure due to adjacen t compressive atelectasis right measuring approximately 4.4 x 3.3 cm axial image 73. Max SUV is 37.32 . There is additional rounded area in the left anterior upper apex measuring near 1.5 cm axial image 56 with abnormal hypermetabolic uptake, max SUV is 10.8 cm. There is hypermetabolic 1.2 x 1.0 cm subc arinal lymph node axial image 76, max SUV is 3.2 on axial image 57. ABDOMEN AND PELVIS: No hypermetabolic adrenal masses. Normal excretion. Nonspecific bowel uptake. No definitive abnormal hypermetabolic uptake. OSSEOUS STRUCTURES: Mild hypermetabolic uptake anterior right second rib appears to correspond to hea ling or subacute fracture axial image 67. OTHER CT: Mild to moderate calcified plaque bilateral carotid bulb level. Left breast biscuit maker noted. Left axillary surgical clips are present. Coronary artery calcification is seen. There is AAA with aortobiiliac stent graft in place. There is grade 1 anterolisthesis L4 on L5. Mild to moderate chronic compression type fracture at L1 level. Degenerative change bilateral shoulders. IMPRESSION: Central left lung mass with suspected early subcarinal adenopathy. Possible additional hy permetabolic nodule in the left lung apex. No metastatic disease below the diaphragm or in the neck n oted.
== END | disposition home or self-care (01) ==
LOC: RADPETMAIN 12:59
PROVIDERS: ATTEND Family Medicine
DX: R91.8 Other nonspecific abnormal finding of lung field (principal)
CPT/HCPCS: 78815; A9552

== ENCOUNTER 2022-02-19 16:27 | Inpatient (IN) | payer MEDICARE, OTHER ==
[2022-02-19] MEDS ORDERED: SODIUM CHLORIDE 0.9% 1,000 ML IV STA (18:34)
[2022-02-19] MEDS ORDERED: PANTOPRAZOLE 40 MG/10 ML VIAL IVP STA (18:34)
--- NOTE | 2022-02-19 18:39 | ED ---
General Adult HPI - General Chief complaint: GI Bleed Stated complaint: Blood in stool Time Seen by Provider: 02/19/22 18:11 Source: patient, family, RN notes reviewed Mode of arrival: ambulatory Limitations: no limitations - History of Present Illness Initial comments: This is a pleasant 81-year-old female with a history of dementia and parkinsons who presents to the emergency department for evaluation of blood in stool. Patient's spouse states the patient had a very large bowel movement this afternoon followed by a bright red rectal bleeding. Reports issues with constipation over the last several days. Also reports an episode of vomiting earlier in the day though denies any blood or coffee ground emesis appearance. States she does take Plavix. Patient also complains of shortness of breath; recently diagnosed with a lung mass. Patient is being seen by Drs. Bhakta and Naty for ongoing care. Denies fever, chills, headache, dizziness, chest pain, abdominal pain, diarrhea, dysuria, and hematuria. - Related Data Home Medications Medication Instructions Recorded Confirmed Levothyroxine Sodium [Synthroid] 25 mcg PO DAILY@129901/20/16 02/19/22 Lisinopril [Prinivil] 5 mg PO DAILY@89901/20/16 02/19/22 metFORMIN HCL [Glucophage] 500 mg PO DAILY@129901/20/16 02/19/22 Ipratropium-Albuterol Nebulize 3 ml INHALATION RT-QID 07/28/16 02/19/22 [Duoneb 0.5 mg-3 mg/3 ml Soln] Loratadine [Claritin] 20 mg PO DAILY@89907/28/16 02/19/22 Carbidopa/Levodopa 1 tab PO DAILY@89901/25/22 02/19/22 [Carbidopa-Levodopa 25-100 Tab] Carbidopa/Levodopa 2 tab PO DAILY@129901/25/22 02/19/22 [Carbidopa-Levodopa 25-100 Tab] Cyanocobalamin (Vitamin B-12) 1,000 mcg PO DAILY@179901/25/22 02/19/22 [Vitamin B-12] Donepezil [Aricept] 10 mg PO DAILY@89901/25/22 02/19/22 Ferrous Sulfate [Iron (65 MG 325 mg PO BID@0900,1800 01/25/22 02/19/22 Elemental)] Montelukast Sodium [Singulair] 10 mg PO DAILY@1800 01/25/22 02/19/22 amLODIPine [Norvasc] 5 mg PO DAILY@1300 01/25/22 02/19/22 Atorvastatin [Lipitor] 10 mg PO DAILY@1800 02/19/22 02/19/22 Cholecalciferol [Vitamin D3 (25 50 mcg PO DAILY@179902/19/22 02/19/22 Mcg = 1000 Iu)] Citalopram Hydrobromide [CeleXA] 20 mg PO DAILY@89902/19/22 02/19/22 Clopidogrel [Plavix] 75 mg PO DAILY@89902/19/22 02/19/22 Metoprolol Tartrate [Lopressor] 25 mg PO BID@0900,1800 02/19/22 02/19/22 Omeprazole 20 mg PO DAILY@89902/19/22 02/19/22 QUEtiapine [SEROquel] 50 mg PO DAILY@1800 02/19/22 02/19/22 buPROPion [Wellbutrin] 75 mg PO BID@0900,1800 02/19/22 02/19/22 lamoTRIgine [LaMICtal] 25 mg PO BID@0900,1800 02/19/22 02/19/22 Allergies Allergy/AdvReac Type Severity Reaction Status Date / Time No Known Allergies Allergy Verified 02/19/22 20:02 Review of Systems ROS Statement: Those systems with pertinent positive or pertinent negative responses have been documented in the HPI. ROS Other: All systems not noted in ROS Statement are negative. 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 Frequent UTI last about a year ago History of Any Multi-Drug Resistant Organisms: ESBL Date of last positivie culture/infection: 01/20/16 MDRO Source:: urine ESBL E.COLI Past Surgical History: Breast Surgery, Heart Catheterization, Tubal Ligation Additional Past Surgical History / Comment(s): Left mastectomy with later breast implant, cataracts with lens replacement, years ago, abdominial aortic stent 2017 Past Anesthesia/Blood Transfusion Reactions: No Reported Reaction Additional Past Anesthesia/Blood Transfusion Reaction / Comment(s): no blood transfusions Past Psychological History: Anxiety, Depression Smoking Status: Former smoker - Past Family History Mother Family Medical History: Cancer Additional Family Medical History / Comment(s): colon cancer Father Additional Family Medical History / Comment(s): aneurysm General Exam Limitations: no limitations General appearance: alert, in no apparent distress, other (Well-developed, well- nourished female in no acute distress. Initial temperature 97.9, pulse 82, respirations 18, blood pressure 139/64, pulse ox 96% on room air.) Eye exam: Present: normal appearance. Absent: scleral icterus, conjunctival injection ENT exam: Present: mucous membranes dry Neck exam: Present: normal inspection, full ROM. Absent: lymphadenopathy Respiratory exam: Present: normal lung sounds bilaterally. Absent: respiratory distress, wheezes, rales, rhonchi, stridor, chest wall tenderness Cardiovascular Exam: Present: regular rate, normal rhythm, normal heart sounds GI/Abdominal exam: Present: soft, normal bowel sounds. Absent: distended, tenderness, guarding, rebound, rigid Rectal exam: Present: normal rectal tone, heme (+) stool Extremities exam: Present: normal inspection, normal capillary refill Neurological exam: Present: alert Expanded Patient oriented to: Present: person, place. Absent: time Speech: Present: fluid speech Cranial nerves: EOM's Intact: Normal Cerebellar function: Romberg: Normal Motor strength exam: RUE: 5, LUE: 5, RLE: 5, LLE: 5 Eye Response: (4) open spontaneously Motor Response: (6) obeys commands Verbal Response: (4) confused conversation [place] Total: 14 Psychiatric exam: Present: flat affect Skin exam: Present: warm, dry, intact, pallor Course Vital Signs 02/19/22 02/19/22 02/19/22 17:58 18:30 19:00 Temperature 97.9 F Pulse Rate 82 80 70 Respiratory 18 18 18 Rate Blood Pressure 139/64 152/61 O2 Sat by Pulse 96 92 L 98 Oximetry 02/19/22 23:22 Temperature Pulse Rate 74 Respiratory 15 Rate Blood Pressure 144/68 O2 Sat by Pulse 98 Oximetry - Reevaluation(s) Reevaluation #1: 02/19/22 21:44 Patient resting comfortably. Tolerating oral intake. Discussed renal function. States she is has been worsening since receiving contrast dye last month. I spoke with Dr. Samuels who agrees to accept this admission and Dr. Gandara who agrees to consult. Patient agreeable to hospital admission. Medical Decision Making - Medical Decision Making 81-year-old female with a past medical history of dementia, Parkinson's disease, lung mass, and renal insufficiency presents to the emergency department for evaluation of rectal bleeding after having a large bowel movement. Upon exam, patient is well-nourished and pale in appearance. She is able to follow commands. Has some shortness of breath; room air sat 92% which improved on 2 L. Abdomen is soft and nontender. No vomiting or diarrhea. Patient did have one episode of mucousy, blood-tinged stool. Laboratory studies were obtained showing leukocytosis (WBC 19.5), a stable hemoglobin (10.8), renal impairment (BUN 44, Surgical Physician Assistant 2.02), and a critical Magnesium (0.5). Occult stool is positive. Chest Xray shows left apical opacity which is known to be a mass for which patient has been seen by pulmonology and oncology. Given leukocytosis and hypoxia, there is concern for obstructive pneumonia therefore patient will be admitted and started on antibiotics. Magnesium was supplemented cautiously given her decreased renal function. This patient's care was discussed at length with my attending, Dr. Glez. - Lab Data Result diagrams: 02/19/22 18:44 02/19/22 18:44 Lab Results 02/19/22 02/19/22 02/19/22 Range/Units 18:44 18:44 18:44 WBC 19.5 H (3.8-10.6) k/uL RBC 3.66 L (3.80-5.40) m/uL Hgb 10.8 L (11.4-16.0) gm/dL Hct 33.9 L (34.0-46.0) % MCV 92.6 (80.0-100.0) fL MCH 29.4 (25.0-35.0) pg MCHC 31.8 (31.0-37.0) g/dL RDW 15.7 H (11.5-15.5) % Plt Count 247 (150-450) k/uL MPV 7.1 Neutrophils % 88 % Lymphocytes % 7 % Monocytes % 3 % Eosinophils % 2 % Basophils % 1 % Neutrophils # 17.0 H (1.3-7.7) k/uL Lymphocytes # 1.3 (1.0-4.8) k/uL Monocytes # 0.6 (0-1.0) k/uL Eosinophils # 0.3 (0-0.7) k/uL Basophils # 0.1 (0-0.2) k/uL PT 12.0 (9.0-12.0) sec INR 1.1 (<1.2) APTT 25.3 (22.0-30.0) sec Sodium (137-145) mmol/L Potassium (3.5-5.1) mmol/L Chloride (98-107) mmol/L Carbon Dioxide (22-30) mmol/L Anion Gap mmol/L BUN (7-17) mg/dL Creatinine (0.52-1.04) mg/dL Est GFR (CKD-EPI)AfAm (>60 ml/min/1.73 sqM) Est GFR (CKD-EPI)NonAf (>60 ml/min/1.73 sqM) Glucose (74-99) mg/dL Plasma Lactic Acid Derrell (0.7-2.0) mmol/L Calcium (8.4-10.2) mg/dL Magnesium (1.6-2.3) mg/dL Total Bilirubin (0.2-1.3) mg/dL AST (14-36) U/L ALT (4-34) U/L Alkaline Phosphatase (38-126) U/L Troponin I (0.000-0.034) ng/mL Total Protein (6.3-8.2) g/dL Albumin (3.5-5.0) g/dL Stool Occult Blood Positive H (Negative) Blood Type Blood Type Confirm Blood Type Recheck Bld Type Recheck Status Antibody Screen Spec Expiration Date 02/19/22 02/19/22 02/19/22 Range/Units 18:44 18:44 18:44 WBC (3.8-10.6) k/uL RBC (3.80-5.40) m/uL Hgb (11.4-16.0) gm/dL Hct (34.0-46.0) % MCV (80.0-100.0) fL MCH (25.0-35.0) pg MCHC (31.0-37.0) g/dL RDW (11.5-15.5) % Plt Count (150-450) k/uL MPV Neutrophils % % Lymphocytes % % Monocytes % % Eosinophils % % Basophils % % Neutrophils # (1.3-7.7) k/uL Lymphocytes # (1.0-4.8) k/uL Monocytes # (0-1.0) k/uL Eosinophils # (0-0.7) k/uL Basophils # (0-0.2) k/uL PT (9.0-12.0) sec INR (<1.2) APTT (22.0-30.0) sec Sodium 140 (137-145) mmol/L Potassium 5.6 H (3.5-5.1) mmol/L Chloride 106 (98-107) mmol/L Carbon Dioxide 17 L (22-30) mmol/L Anion Gap 17 mmol/L BUN 44 H (7-17) mg/dL Creatinine 2.02 H (0.52-1.04) mg/dL Est GFR (CKD-EPI)AfAm 26 (>60 ml/min/1.73 sqM) Est GFR (CKD-EPI)NonAf 23 (>60 ml/min/1.73 sqM) Glucose 111 H (74-99) mg/dL Plasma Lactic Acid Derrell 1.3 (0.7-2.0) mmol/L Calcium 8.8 (8.4-10.2) mg/dL Magnesium 0.5 L* (1.6-2.3) mg/dL Total Bilirubin 0.7 (0.2-1.3) mg/dL AST 25 (14-36) U/L ALT 7 (4-34) U/L Alkaline Phosphatase 141 H (38-126) U/L Troponin I <0.012 (0.000-0.034) ng/mL Total Protein 8.1 (6.3-8.2) g/dL Albumin 4.6 (3.5-5.0) g/dL Stool Occult Blood (Negative) Blood Type Blood Type Confirm Blood Type Recheck Bld Type Recheck Status Antibody Screen Spec Expiration Date 02/19/22 02/19/22 Range/Units 18:44 18:58 WBC (3.8-10.6) k/uL RBC (3.80-5.40) m/uL Hgb (11.4-16.0) gm/dL Hct (34.0-46.0) % MCV (80.0-100.0) fL MCH (25.0-35.0) pg MCHC (31.0-37.0) g/dL RDW (11.5-15.5) % Plt Count (150-450) k/uL MPV Neutrophils % % Lymphocytes % % Monocytes % % Eosinophils % % Basophils % % Neutrophils # (1.3-7.7) k/uL Lymphocytes # (1.0-4.8) k/uL Monocytes # (0-1.0) k/uL Eosinophils # (0-0.7) k/uL Basophils # (0-0.2) k/uL PT (9.0-12.0) sec INR (<1.2) APTT (22.0-30.0) sec Sodium (137-145) mmol/L Potassium (3.5-5.1) mmol/L Chloride (98-107) mmol/L Carbon Dioxide (22-30) mmol/L Anion Gap mmol/L BUN (7-17) mg/dL Creatinine (0.52-1.04) mg/dL Est GFR (CKD-EPI)AfAm (>60 ml/min/1.73 sqM) Est GFR (CKD-EPI)NonAf (>60 ml/min/1.73 sqM) Glucose (74-99) mg/dL Plasma Lactic Acid Derrell (0.7-2.0) mmol/L Calcium (8.4-10.2) mg/dL Magnesium (1.6-2.3) mg/dL Total Bilirubin (0.2-1.3) mg/dL AST (14-36) U/L ALT (4-34) U/L Alkaline Phosphatase (38-126) U/L Troponin I (0.000-0.034) ng/mL Total Protein (6.3-8.2) g/dL Albumin (3.5-5.0) g/dL Stool Occult Blood (Negative) Blood Type O Positive Blood Type Confirm O Positive Blood Type Recheck No Previous Record Bld Type Recheck Status CABO Indicated Antibody Screen NEGATIVE Spec Expiration Date 02/22/2022 9863 - Radiology Data Radiology results: report reviewed, image reviewed Two-view chest x-ray was obtained. Report was reviewed in its entirety. Impression per Dr. Wyatt is #1. Left apical airspace opacity, likely secondary to anterior segmental atelectasis as [place] [address]. #2. Mild emphysematous changes. Right lung is clear focal consolidation. Disposition Clinical Impression: Hematochezia, Hypomagnesemia, Pneumonia Disposition: ADMITTED IP TO THIS HOSP Condition: Serious Is patient prescribed a controlled substance at d/c from ED?: No Decision Date: 02/19/22 Decision Time: 22:08
[2022-02-19 19:07] LABS: Basophils # (A) 0.1 k/uL (0-0.2); Basophils % (A) 1 %; Eosinophils # (A) 0.3 k/uL (0-0.7); Eosinophils % (A) 2 %; HCT 33.9 % (34.0-46.0); HGB 10.8 gm/dL (11.4-16.0); Lymphocytes # (A) 1.3 k/uL (1.0-4.8); Lymphocytes % (A) 7 %; MCH 29.4 pg (25.0-35.0); MCHC 31.8 g/dL (31.0-37.0); MCV 92.6 fL (80.0-100.0); Mean Platelet Volume 7.1; Monocytes # (A) 0.6 k/uL (0-1.0); Monocytes % (A) 3 %; Neutrophils % (A) 88 %; Platelet Count 247 k/uL (150-450); RBC 3.66 m/uL (3.80-5.40); RDW 15.7 % (11.5-15.5); WBC 19.5 k/uL (3.8-10.6)
[2022-02-19 19:16] LABS: Albumin 4.6 g/dL (3.5-5.0); Calcium 8.8 mg/dL (8.4-10.2); Potassium 5.6 mmol/L (3.5-5.1); Total Bilirubin 0.7 mg/dL (0.2-1.3); Total Protein 8.1 g/dL (6.3-8.2)
--- NOTE | 2022-02-19 19:19 | XR ---
EXAMINATION TYPE: XR chest 2V DATE OF EXAM: 02/19/2022 7:07 PM COMPARISON: CT PET 02/04/2022, CT chest 01/11/2022 TECHNIQUE: XR chest 2V . CLINICAL INDICATION:Female, 81 years old with history of shortness of breath; FINDINGS: Lungs/Pleura: Mild to moderate emphysematous changes are present in the right lung. Left anterior api dori consolidation extends to the hilum, likely secondary to segmental atelectasis. Fullness of the le ft superhilar region noted. Remainder of the left lung is clear. No evidence for pneumothorax or pleu ral effusion. Pulmonary vascularity: Unremarkable. Heart/mediastinum: Cardiomediastinal silhouette is unremarkable. Atherosclerotic calcifications are seen in the aorta. Musculoskeletal: Degenerative changes of the left shoulder joint. IMPRESSION: 1. Left apical airspace opacity, likely secondary to anterior segmental atelectasis as seen on recent PET/CT from 02/04/2022. 2. Mild emphysematous changes. Right lung is clear of focal consolidation.
[2022-02-19 19:20] LABS: Magnesium 0.5 mg/dL (1.6-2.3)
[2022-02-19 19:24] LABS: INR 1.1 (<1.2); Partial Thromboplastin Time 25.3 sec (22.0-30.0)
[2022-02-19] MEDS ORDERED: MAGNESIUM SULFATE-D5W PMX 1 GM in DEXTROSE/WATER 1 100ML.BAG IVPB ONE ×2 (19:34→20:45)
[2022-02-19] MEDS ORDERED: cefTRIAXone IN SWFI 1,000 MG/10 ML SYRINGE IVP STA (22:12)
[2022-02-19] MEDS ORDERED: ONDANSETRON 4 MG/2 ML VIAL IVP PRN (22:41)
[2022-02-19] MEDS ORDERED: NALOXONE 0.4 MG/ML 1 ML VIAL IV PRN ×2 (22:41→22:54)
[2022-02-19] MEDS ORDERED: ACETAMINOPHEN TAB 325 MG TAB PO PRN (22:41)
[2022-02-19] MEDS ORDERED: HYDROmorphone 0.5 MG/0.5 ML SYRINGE IVP PRN (22:41)
[2022-02-19] MEDS ORDERED: AZITHROMYCIN 500 MG in SODIUM CHLORIDE 0.9% 250 ML IVPB ONE (23:00)
[2022-02-20 06:21] LABS: Basophils # (A) 0.1 k/uL (0-0.2); Basophils % (A) 1 %; Eosinophils # (A) 0.2 k/uL (0-0.7); Eosinophils % (A) 2 %; HCT 30.7 % (34.0-46.0); HGB 9.9 gm/dL (11.4-16.0); Hypochromasia Slight; Lymphocytes # (A) 2.2 k/uL (1.0-4.8); Lymphocytes % (A) 18 %; MCH 30.6 pg (25.0-35.0); MCHC 32.3 g/dL (31.0-37.0); MCV 94.6 fL (80.0-100.0); Mean Platelet Volume 7.5; Monocytes # (A) 0.8 k/uL (0-1.0); Monocytes % (A) 6 %; Neutrophils # (A) 9.1 k/uL (1.3-7.7); Neutrophils % (A) 73 %; Platelet Count 227 k/uL (150-450); RBC 3.24 m/uL (3.80-5.40); RDW 15.6 % (11.5-15.5); WBC 12.5 k/uL (3.8-10.6)
[2022-02-20 06:44] LABS: Calcium 7.9 mg/dL (8.4-10.2); Potassium 4.2 mmol/L (3.5-5.1)
[2022-02-20] MEDS: SODIUM CHLORIDE 0.9% 1,000 ML IV SCH ×3 (08:41→18:07)
[2022-02-20] MEDS ORDERED: FAMOTIDINE 20 MG TAB PO SCH (09:00)
[2022-02-20 09:49] LABS: Appearance,Urine Cloudy (Clear); Bilirubin,Urine Negative (Negative); Blood,Urine Large (Negative); Color,Urine Yellow; Glucose,Urine (UA) Negative (Negative); Ketones,Urine Negative (Negative); Leukocyte Esterase,Urine Large (Negative); Nitrite,Urine Negative (Negative); Protein,Urine 1+ (Negative); RBC,Urine >182 /hpf (0-5); Specific Gravity,Urine 1.015 (1.001-1.035); Squamous Epithelial Cell,Urine <1 /hpf (0-4); Urobilinogen,Urine <2.0 mg/dL (<2.0); WBC,Urine >182 /hpf (0-5)
[2022-02-20] MEDS ORDERED: IPRATROPIUM-ALBUTEROL 3 ML NEB INHALATION PRN (09:59)
[2022-02-20] MEDS: IPRATROPIUM-ALBUTEROL 3 ML NEB INHALATION SCH ×3 (11:29→19:56)
--- NOTE | 2022-02-20 11:39 | P.GSCN ---
History of Present Illness Consult date: 02/20/22 Reason for Consult: GI bleed History of present illness: Patient hospitalized yesterday through the ER with shortness of breath and rectal bleeding. Patient apparently had a large stool yesterday. Her felt that she was likely constipated. Following that he noticed some rectal bleeding. Also has had some hematuria. He is on Plavix. Patient with a known lung mass. Admitted for possible pneumonia. Last colonoscopy several years ago. Denies rectal pain currently. She was heme positive on rectal exam. 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 Frequent UTI last about a year ago History of Any Multi-Drug Resistant Organisms: ESBL Year Discovered:: 01/20/16 MDRO Source:: urine ESBL E.COLI Past Surgical History: Breast Surgery, Heart Catheterization, Tubal Ligation Additional Past Surgical History / Comment(s): Left mastectomy with later breast implant, cataracts with lens replacement, years ago, abdominial aortic stent 2016 Past Anesthesia/Blood Transfusion Reactions: No Reported Reaction Additional Past Anesthesia/Blood Transfusion Reaction / Comm: no blood transfusions Smoking Status: Former smoker - Past Family History Mother Family Medical History: Cancer Additional Family Medical History / Comment(s): colon cancer Father Additional Family Medical History / Comment(s): aneurysm Medications and Allergies Home Medications Medication Instructions Recorded Confirmed Type Levothyroxine Sodium [Synthroid] 25 mcg PO DAILY@1300 01/20/16 02/19/22 History Lisinopril [Prinivil] 5 mg PO DAILY@89901/20/16 02/19/22 History metFORMIN HCL [Glucophage] 500 mg PO DAILY@1300 01/20/16 02/19/22 History Ipratropium-Albuterol Nebulize 3 ml INHALATION RT-QID 07/28/16 02/19/22 History [Duoneb 0.5 mg-3 mg/3 ml Soln] Loratadine [Claritin] 20 mg PO DAILY@89907/28/16 02/19/22 History Carbidopa/Levodopa 1 tab PO DAILY@89901/25/22 02/19/22 History [Carbidopa-Levodopa 25-100 Tab] Carbidopa/Levodopa 2 tab PO DAILY@1300 01/25/22 02/19/22 History [Carbidopa-Levodopa 25-100 Tab] Cyanocobalamin (Vitamin B-12) 1,000 mcg PO DAILY@1800 01/25/22 02/19/22 History [Vitamin B-12] Donepezil [Aricept] 10 mg PO DAILY@89901/25/22 02/19/22 History Ferrous Sulfate [Iron (65 MG 325 mg PO BID@0900,1800 01/25/22 02/19/22 History Elemental)] Montelukast Sodium [Singulair] 10 mg PO DAILY@1800 01/25/22 02/19/22 History amLODIPine [Norvasc] 5 mg PO DAILY@1300 01/25/22 02/19/22 History Atorvastatin [Lipitor] 10 mg PO DAILY@1800 02/19/22 02/19/22 History Cholecalciferol [Vitamin D3 (25 50 mcg PO DAILY@179902/19/22 02/19/22 History Mcg = 1000 Iu)] Citalopram Hydrobromide [CeleXA] 20 mg PO DAILY@89902/19/22 02/19/22 History Clopidogrel [Plavix] 75 mg PO DAILY@89902/19/22 02/19/22 History Metoprolol Tartrate [Lopressor] 25 mg PO BID@0900,1800 02/19/22 02/19/22 History Omeprazole 20 mg PO DAILY@89902/19/22 02/19/22 History QUEtiapine [SEROquel] 50 mg PO DAILY@179902/19/22 02/19/22 History buPROPion [Wellbutrin] 75 mg PO BID@0900,1800 02/19/22 02/19/22 History lamoTRIgine [LaMICtal] 25 mg PO BID@0900,1800 02/19/22 02/19/22 History Allergies Allergy/AdvReac Type Severity Reaction Status Date / Time No Known Allergies Allergy Verified 02/19/22 20:02 Surgical - Exam Vital Signs Temp Pulse Resp BP Pulse Ox 97.9 F 82 18 139/64 96 02/19/22 17:58 02/19/22 17:58 02/19/22 17:58 02/19/22 17:58 02/19/22 17:58 Physical exam: General: Well-developed, well-nourished HEENT: Normocephalic, sclerae nonicteric Abdomen: Nontender, nondistended Extremities: No edema Neuro: Alert and oriented Results - Labs 02/20/22 05:39 02/20/22 05:39 Abnormal Lab Results - Last 24 Hours (Table) 02/19/22 02/19/22 02/19/22 Range/Units 18:44 18:44 18:44 WBC 19.5 H (3.8-10.6) k/uL RBC 3.66 L (3.80-5.40) m/uL Hgb 10.8 L (11.4-16.0) gm/dL Hct 33.9 L (34.0-46.0) % RDW 15.7 H (11.5-15.5) % Neutrophils # 17.0 H (1.3-7.7) k/uL Potassium 5.6 H (3.5-5.1) mmol/L Chloride (98-107) mmol/L Carbon Dioxide 17 L (22-30) mmol/L BUN 44 H (7-17) mg/dL Creatinine 2.02 H (0.52-1.04) mg/dL Glucose 111 H (74-99) mg/dL Calcium (8.4-10.2) mg/dL Magnesium 0.5 L* (1.6-2.3) mg/dL Alkaline Phosphatase 141 H (38-126) U/L Urine Appearance (Clear) Urine Protein (Negative) Urine Blood (Negative) Ur Leukocyte Esterase (Negative) Urine RBC (0-5) /hpf Urine WBC (0-5) /hpf Stool Occult Blood Positive H (Negative) 02/20/22 02/20/22 02/20/22 Range/Units 05:39 05:39 05:39 WBC 12.5 H (3.8-10.6) k/uL RBC 3.24 L (3.80-5.40) m/uL Hgb 9.9 L (11.4-16.0) gm/dL Hct 30.7 L (34.0-46.0) % RDW 15.6 H (11.5-15.5) % Neutrophils # 9.1 H (1.3-7.7) k/uL Potassium (3.5-5.1) mmol/L Chloride 108 H (98-107) mmol/L Carbon Dioxide 20 L (22-30) mmol/L BUN 40 H (7-17) mg/dL Creatinine 1.83 H (0.52-1.04) mg/dL Glucose (74-99) mg/dL Calcium 7.9 L (8.4-10.2) mg/dL Magnesium 1.4 L (1.6-2.3) mg/dL Alkaline Phosphatase (38-126) U/L Urine Appearance (Clear) Urine Protein (Negative) Urine Blood (Negative) Ur Leukocyte Esterase (Negative) Urine RBC (0-5) /hpf Urine WBC (0-5) /hpf Stool Occult Blood (Negative) 02/20/22 Range/Units 09:23 WBC (3.8-10.6) k/uL RBC (3.80-5.40) m/uL Hgb (11.4-16.0) gm/dL Hct (34.0-46.0) % RDW (11.5-15.5) % Neutrophils # (1.3-7.7) k/uL Potassium (3.5-5.1) mmol/L Chloride (98-107) mmol/L Carbon Dioxide (22-30) mmol/L BUN (7-17) mg/dL Creatinine (0.52-1.04) mg/dL Glucose (74-99) mg/dL Calcium (8.4-10.2) mg/dL Magnesium (1.6-2.3) mg/dL Alkaline Phosphatase (38-126) U/L Urine Appearance Cloudy H (Clear) Urine Protein 1+ H (Negative) Urine Blood Large H (Negative) Ur Leukocyte Esterase Large H (Negative) Urine RBC >182 H (0-5) /hpf Urine WBC >182 H (0-5) /hpf Stool Occult Blood (Negative) Diabetes panel 02/19/22 02/20/22 Range/Units 18:44 05:39 Sodium 140 141 (137-145) mmol/L Potassium 5.6 H 4.2 (3.5-5.1) mmol/L Chloride 106 108 H (98-107) mmol/L Carbon Dioxide 17 L 20 L (22-30) mmol/L BUN 44 H 40 H (7-17) mg/dL Creatinine 2.02 H 1.83 H (0.52-1.04) mg/dL Glucose 111 H 82 (74-99) mg/dL Calcium 8.8 7.9 L (8.4-10.2) mg/dL AST 25 (14-36) U/L ALT 7 (4-34) U/L Alkaline Phosphatase 141 H (38-126) U/L Total Protein 8.1 (6.3-8.2) g/dL Albumin 4.6 (3.5-5.0) g/dL Calcium panel 02/19/22 02/20/22 Range/Units 18:44 05:39 Calcium 8.8 7.9 L (8.4-10.2) mg/dL Albumin 4.6 (3.5-5.0) g/dL Pituitary panel 02/19/22 02/20/22 Range/Units 18:44 05:39 Sodium 140 141 (137-145) mmol/L Potassium 5.6 H 4.2 (3.5-5.1) mmol/L Chloride 106 108 H (98-107) mmol/L Carbon Dioxide 17 L 20 L (22-30) mmol/L BUN 44 H 40 H (7-17) mg/dL Creatinine 2.02 H 1.83 H (0.52-1.04) mg/dL Glucose 111 H 82 (74-99) mg/dL Calcium 8.8 7.9 L (8.4-10.2) mg/dL Adrenal panel 02/19/22 02/20/22 Range/Units 18:44 05:39 Sodium 140 141 (137-145) mmol/L Potassium 5.6 H 4.2 (3.5-5.1) mmol/L Chloride 106 108 H (98-107) mmol/L Carbon Dioxide 17 L 20 L (22-30) mmol/L BUN 44 H 40 H (7-17) mg/dL Creatinine 2.02 H 1.83 H (0.52-1.04) mg/dL Glucose 111 H 82 (74-99) mg/dL Calcium 8.8 7.9 L (8.4-10.2) mg/dL Total Bilirubin 0.7 (0.2-1.3) mg/dL AST 25 (14-36) U/L ALT 7 (4-34) U/L Alkaline Phosphatase 141 H (38-126) U/L Total Protein 8.1 (6.3-8.2) g/dL Albumin 4.6 (3.5-5.0) g/dL Assessment and Plan (1) Hematochezia Narrative/Plan: 81-year-old female with rectal bleeding yesterday after large stool. Suspect possible anal source of bleeding given the constipation the proceeded this. Patient is not a good candidate for anesthesia or endoscopy at this time given her comorbidities. We'll follow with you. Possible colonoscopy later during this hospitalization or possibly as an outpatient. Current Visit: Yes Status: Acute Code(s): K92.1 - MELENA SNOMED Code(s): 870359614
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
[2022-02-20] MEDS: LEVOTHYROXINE 25 MCG TAB PO SCH (13:28)
[2022-02-20] MEDS: CARBIDOPA-LEVODOPA 25-100 MG 1 EACH TAB PO SCH (13:28)
[2022-02-20] MEDS: MAGNESIUM SULFATE-D5W PMX 1 GM in DEXTROSE/WATER 1 100ML.BAG IVPB SCH ×3 (13:29→16:01)
[2022-02-20] MEDS: predniSONE 20 MG TAB PO SCH (13:31)
[2022-02-20 16:52] LABS: Glucose,Whole Blood 231 mg/dL (70-110)
[2022-02-20] MEDS: INSULIN ASPART (NovoLOG) 100 UNIT/ML VIAL SQ SCH ×2 (17:59→21:17)
[2022-02-20] MEDS: buPROPion 75 MG TAB PO SCH (18:00)
[2022-02-20] MEDS: METOPROLOL TARTRATE 25 MG TAB PO SCH (18:00)
[2022-02-20] MEDS: MONTELUKAST 10 MG TAB PO SCH (18:00)
[2022-02-20] MEDS ORDERED: FERROUS SULFATE 325 MG TAB PO SCH (18:00)
[2022-02-20] MEDS: lamoTRIgine 25 MG TAB PO SCH (18:00)
[2022-02-20] MEDS: CYANOCOBALAMIN 500 MCG TAB PO SCH (18:00)
[2022-02-20] MEDS: ATORVASTATIN 10 MG TAB PO SCH (18:00)
[2022-02-20] MEDS: CHOLECALCIFEROL 25 MCG (1000 IU) TABLET PO SCH (18:07)
[2022-02-20 20:28] LABS: Glucose,Whole Blood 176 mg/dL (70-110)
[2022-02-20] MEDS: HEPARIN SODIUM,PORCINE/PF 5,000 UNIT/0.5 ML SYRINGE SQ SCH (21:16)
[2022-02-20] MEDS: QUEtiapine 50 MG TAB PO SCH (21:17)
[2022-02-21 06:06] LABS: Glucose,Whole Blood 114 mg/dL (70-110)
[2022-02-21] MEDS: INSULIN ASPART (NovoLOG) 100 UNIT/ML VIAL SQ SCH ×4 (06:30→20:35)
[2022-02-21] MEDS: IPRATROPIUM-ALBUTEROL 3 ML NEB INHALATION SCH ×4 (07:15→20:49)
[2022-02-21] MEDS: LORATADINE 10 MG TAB PO SCH (08:18)
[2022-02-21] MEDS: CARBIDOPA-LEVODOPA 25-100 MG 1 EACH TAB PO SCH ×2 (08:18→13:29)
[2022-02-21] MEDS: predniSONE 20 MG TAB PO SCH (08:18)
[2022-02-21] MEDS: CITALOPRAM HYDROBROMIDE 20 MG TAB PO SCH (08:18)
[2022-02-21] MEDS: lamoTRIgine 25 MG TAB PO SCH ×2 (08:18→18:13)
[2022-02-21] MEDS: SODIUM CHLORIDE 0.9% 1,000 ML IV SCH ×2 (08:18→18:13)
[2022-02-21] MEDS: DONEPEZIL 10 MG TAB PO SCH (08:18)
[2022-02-21] MEDS: FAMOTIDINE 20 MG TAB PO SCH (08:19)
[2022-02-21] MEDS: HEPARIN SODIUM,PORCINE/PF 5,000 UNIT/0.5 ML SYRINGE SQ SCH ×3 (08:19→20:37)
[2022-02-21] MEDS: METOPROLOL TARTRATE 25 MG TAB PO SCH ×2 (08:19→18:11)
[2022-02-21] MEDS: buPROPion 75 MG TAB PO SCH ×2 (08:25→18:10)
[2022-02-21] MEDS ORDERED: CLOPIDOGREL 75 MG TAB PO SCH (09:00)
--- NOTE | 2022-02-21 10:00 | P.PN ---
Subjective Progress Note Date: 02/21/22 Principal diagnosis: GI bleed Patient doing well today. Shortness of breath is improved. She has not moved her bowels. Morning labs are pending. Objective - Vital Signs Vital signs: Vital Signs Temp 97.6 F 02/21/22 04:00 Pulse 92 02/21/22 07:22 Resp 15 02/21/22 04:00 BP 156/79 02/21/22 04:00 Pulse Ox 95 02/21/22 07:17 FiO2 Intake & Output 02/20/22 02/21/22 02/21/22 18:59 06:59 18:59 Intake Total 118 900 240 Output Total 550 550 200 Balance -432 350 40 Intake: Intake, IV Titration 900 Amount Sodium Chloride 0.9% 1, 900 000 ml @ 75 mls/hr IV . [id number] ANTONIO Rx#:[id number] Oral 118 240 Output: Urine 500 550 200 Post Void Residual 50 Other: Voiding Method Toilet Toilet # Voids 3 - Exam Abdomen: Soft, nontender, nondistended - Labs CBC & Chem 7: 02/20/22 05:39 02/20/22 05:39 Labs: Abnormal Lab Results - Last 24 Hours (Table) 02/20/22 02/20/22 02/20/22 Range/Units 05:39 05:39 16:44 POC Glucose (mg/dL) 231 H (70-110) mg/dL Magnesium 1.4 L (1.6-2.3) mg/dL Procalcitonin 0.58 H (0.02-0.09) ng/mL 02/20/22 02/21/22 Range/Units 20:23 06:03 POC Glucose (mg/dL) 176 H 114 H (70-110) mg/dL Magnesium (1.6-2.3) mg/dL Procalcitonin (0.02-0.09) ng/mL Assessment and Plan (1) Hematochezia Narrative/Plan: Patient doing well today. No bleeding at this time. Some rectal bleeding described by the patient's after large bowel movement. Currently we are suspecting this was related to perianal trauma because of the large stool in the constipation she had been experiencing. If no significant further bleeding would recommend outpatient evaluation. Current Visit: Yes Status: Acute Code(s): K92.1 - MELENA SNOMED Code(s): 787880366
--- NOTE | 2022-02-21 10:27 | P.PN ---
Subjective Progress Note Date: 02/21/22 She is resting comfortably on room air, denies chest pain, fever, chills, dizziness, cough, abdominal pain. She denies any further rectal bleeding. Remains on rocephin and prednisone for COPD exacerbation. Objective - Vital Signs Vital signs: Vital Signs Temp 97.6 F 02/21/22 04:00 Pulse 92 02/21/22 07:22 Resp 15 02/21/22 04:00 BP 156/79 02/21/22 04:00 Pulse Ox 95 02/21/22 07:17 FiO2 Intake & Output 02/20/22 02/21/22 02/21/22 18:59 06:59 18:59 Intake Total 118 900 240 Output Total 550 550 200 Balance -432 350 40 Intake: Intake, IV Titration 900 Amount Sodium Chloride 0.9% 1, 900 000 ml @ 75 mls/hr IV . [id number] ANTONIO Rx#:[id number] Oral 118 240 Output: Urine 500 550 200 Post Void Residual 50 Other: Voiding Method Toilet Toilet # Voids 3 - Exam Gen: elderly female in NAD CV: RRR, no murmur Lungs: Normal effort, no rales. Wheezing noted Abd: soft, nontender - Labs CBC & Chem 7: 02/20/22 05:39 02/20/22 05:39 Labs: Abnormal Lab Results - Last 24 Hours (Table) 02/20/22 02/20/22 02/20/22 Range/Units 05:39 05:39 16:44 POC Glucose (mg/dL) 231 H (70-110) mg/dL Magnesium 1.4 L (1.6-2.3) mg/dL Procalcitonin 0.58 H (0.02-0.09) ng/mL 02/20/22 02/21/22 Range/Units 20:23 06:03 POC Glucose (mg/dL) 176 H 114 H (70-110) mg/dL Magnesium (1.6-2.3) mg/dL Procalcitonin (0.02-0.09) ng/mL Assessment and Plan Plan: Continue with current medications and treatments. Hold heparin. Surgery following and no scope scheduled at this time. Continue with IV abx and steroids. Continue IV fluids
[2022-02-21 11:53] LABS: Glucose,Whole Blood 119 mg/dL (70-110)
[2022-02-21] MEDS: LEVOTHYROXINE 25 MCG TAB PO SCH (13:29)
[2022-02-21 16:35] LABS: Glucose,Whole Blood 205 mg/dL (70-110)
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
[2022-02-21] MEDS: CYANOCOBALAMIN 500 MCG TAB PO SCH (18:10)
[2022-02-21] MEDS: CHOLECALCIFEROL 25 MCG (1000 IU) TABLET PO SCH (18:10)
[2022-02-21] MEDS: ATORVASTATIN 10 MG TAB PO SCH (18:11)
[2022-02-21] MEDS: MONTELUKAST 10 MG TAB PO SCH (18:11)
[2022-02-21 20:26] LABS: Glucose,Whole Blood 132 mg/dL (70-110)
[2022-02-21] MEDS: QUEtiapine 50 MG TAB PO SCH (20:37)
--- NOTE | 2022-02-21 23:28 | P.CONS ---
History of Present Illness - Reason for Consult Consult date: 02/21/22 Lung cancer - History of Present Illness The pt is an 81 yr old WF, who was referred to Dr Bhakta by her PCP as she had presented with 2 episodes of hemoptysis and increased cough. Ct chests showed JOSÉ ANTONIO mass with consoildation, JOSÉ ANTONIO obstruction, prominnet L hilar nodes. She had a bronchoscopy with biopsy on 01/27/22, showing endobronchial ttumor causing complete obstruction JOSÉ ANTONIO, and well as significant compromise of LLL bronchus. 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 PET on 02/04 showed uptake in the JOSÉ ANTONIO, including an additional 1.5 cm nodule separate from the main area of mass/consolidation. There appeared to be possible subcarinal onel involvement. No distant metastatic sdisease was noted. MRI brain on 02/11 was negative for mets The pt came in due to bleeding, initially described as rectal. On further evaluation by the admitting service, it appears it may have been urinary. The pt was also constipated and symptoms apparently occurred after passage of hard stool. Her FOB, and urine were both positive for blood The pt is known to Dr Alfonso, for a previous h/o left breast cancer in 2011. She had a low grade ER+ , as well as a high grade ER- cancer with axillary node involvement. She was treated with mastectomy, axillary node dissection, and hormonal therapy for 5 years. She refused systemic chemotherapy for the ER- breast cancer. Her current tumor was felt to be compatible with a lung primary, based on clinical and histologic characteristics Review of Systems Constitutional: Reports fatigue, Reports weakness Eyes: denies blurred vision, denies pain Ears: deny: decreased hearing, ear discharge, earache, tinnitus Ears, nose, mouth and throat: Denies headache, Denies sore throat Cardiovascular: Reports dyspnea on exertion Respiratory: Reports dyspnea, Reports hemoptysis Gastrointestinal: Reports constipation Genitourinary: Reports as per HPI, Reports hematuria Menstruation: Reports postmenopausal Musculoskeletal: Denies myalgias Integumentary: Denies pruritus, Denies rash Neurological: Reports memory loss, Denies numbness, Denies weakness Psychiatric: Reports difficulty concentrating, Reports memory loss, Denies anxiety, Denies depression Endocrine: Reports fatigue Hematologic/Lymphatic: Reports as per HPI Past Medical History Past Medical History: Cancer, COPD, CVA/TIA, Diabetes Mellitus, GERD/Reflux, Hyperlipidemia, Hypertension, Osteoarthritis (OA), Renal Disease, Thyroid Disorder Additional Past Medical History / Comment(s): Pt states she was having "drop attacks" before seroquel, lung cancer with surgery, parkinsons, dementia, 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 Frequent UTI last about a year ago History of Any Multi-Drug Resistant Organisms: ESBL Year Discovered:: 01/20/16 MDRO Source:: urine ESBL E.COLI Past Surgical History: Breast Surgery, Heart Catheterization, Tubal Ligation Additional Past Surgical History / Comment(s): Left mastectomy with later breast implant, cataracts with lens replacement, years ago, abdominial aortic stent 2017 Past Anesthesia/Blood Transfusion Reactions: No Reported Reaction Additional Past Anesthesia/Blood Transfusion Reaction / Comm: no blood transfusions Smoking Status: Former smoker - Past Family History Mother Family Medical History: Cancer Additional Family Medical History / Comment(s): colon cancer Father Additional Family Medical History / Comment(s): aneurysm Medications and Allergies Home Medications Medication Instructions Recorded Confirmed Type Levothyroxine Sodium [Synthroid] 25 mcg PO DAILY@129901/20/16 02/19/22 History Lisinopril [Prinivil] 5 mg PO DAILY@89901/20/16 02/19/22 History metFORMIN HCL [Glucophage] 500 mg PO DAILY@129901/20/16 02/19/22 History Ipratropium-Albuterol Nebulize 3 ml INHALATION RT-QID 07/28/16 02/19/22 History [Duoneb 0.5 mg-3 mg/3 ml Soln] Loratadine [Claritin] 20 mg PO DAILY@89907/28/16 02/19/22 History Carbidopa/Levodopa 1 tab PO DAILY@89901/25/22 02/19/22 History [Carbidopa-Levodopa 25-100 Tab] Carbidopa/Levodopa 2 tab PO DAILY@1300 01/25/22 02/19/22 History [Carbidopa-Levodopa 25-100 Tab] Cyanocobalamin (Vitamin B-12) 1,000 mcg PO DAILY@1800 01/25/22 02/19/22 History [Vitamin B-12] Donepezil [Aricept] 10 mg PO DAILY@89901/25/22 02/19/22 History Ferrous Sulfate [Iron (65 MG 325 mg PO BID@00,1800 01/25/22 02/19/22 History Elemental)] Montelukast Sodium [Singulair] 10 mg PO DAILY@1800 01/25/22 02/19/22 History amLODIPine [Norvasc] 5 mg PO DAILY@1300 01/25/22 02/19/22 History Atorvastatin [Lipitor] 10 mg PO DAILY@1800 02/19/22 02/19/22 History Cholecalciferol [Vitamin D3 (25 50 mcg PO DAILY@1800 02/19/22 02/19/22 History Mcg = 1000 Iu)] Citalopram Hydrobromide [CeleXA] 20 mg PO DAILY@0900 02/19/22 02/19/22 History Clopidogrel [Plavix] 75 mg PO DAILY@0902/19/22 02/19/22 History Metoprolol Tartrate [Lopressor] 25 mg PO BID@0900,1800 02/19/22 02/19/22 History Omeprazole 20 mg PO DAILY@0900 02/19/22 02/19/22 History QUEtiapine [SEROquel] 50 mg PO DAILY@1800 02/19/22 02/19/22 History buPROPion [Wellbutrin] 75 mg PO BID@0900,1800 02/19/22 02/19/22 History lamoTRIgine [LaMICtal] 25 mg PO BID@0900,1800 02/19/22 02/19/22 History Allergies Allergy/AdvReac Type Severity Reaction Status Date / Time No Known Allergies Allergy Verified 02/19/22 20:02 Physical Exam Vitals: Vital Signs Temp Pulse Pulse Resp BP BP BP 02/20/22 14:15 16 02/20/22 12:05 89 16 119/70 02/20/22 11:41 84 02/20/22 11:30 80 02/20/22 07:45 97.9 F 83 16 87/55 148/77 02/20/22 05:29 110/61 02/20/22 05:00 18 02/20/22 04:30 97.5 F L 78 18 91/57 02/19/22 23:22 74 15 144/68 02/19/22 19:00 70 18 02/19/22 18:30 80 18 152/61 02/19/22 17:58 97.9 F 82 18 139/64 Pulse Ox 02/20/22 14:15 02/20/22 12:05 99 02/20/22 11:41 02/20/22 11:30 02/20/22 07:45 98 02/20/22 05:29 02/20/22 05:00 02/20/22 04:30 97 02/19/22 23:22 98 02/19/22 19:00 98 02/19/22 18:30 92 L 02/19/22 17:58 96 Intake and Output 02/20/22 02/20/22 02/20/22 06:59 14:59 22:59 Intake Total 118 Output Total 200 250 Balance -82 -250 Intake: Oral 118 Output: Urine 200 250 Other: Voiding Method Toilet Toilet Weight 54.431 kg - Constitutional General appearance: no acute distress - EENT Eyes: EOMI, PERRLA ENT: hearing grossly normal, normal oropharynx - Neck Neck: no lymphadenopathy - Respiratory Respiratory: left: diminished - Cardiovascular Rhythm: regular Heart sounds: normal: S1, S2 - Gastrointestinal General gastrointestinal: normal bowel sounds, soft - Integumentary Integumentary: normal - Neurologic Neurologic: CNII-XII intact - Musculoskeletal Musculoskeletal: generalized weakness, strength equal bilaterally - Psychiatric poor recall, memory loss Psychiatric: A&O x's 3 Results CBC & Chem 7: 02/20/22 05:39 02/20/22 05:39 Labs: Abnormal Lab Results - Last 24 Hours (Table) 02/19/22 02/19/22 02/19/22 Range/Units 18:44 18:44 18:44 WBC 19.5 H (3.8-10.6) k/uL RBC 3.66 L (3.80-5.40) m/uL Hgb 10.8 L (11.4-16.0) gm/dL Hct 33.9 L (34.0-46.0) % RDW 15.7 H (11.5-15.5) % Neutrophils # 17.0 H (1.3-7.7) k/uL Potassium 5.6 H (3.5-5.1) mmol/L Chloride (98-107) mmol/L Carbon Dioxide 17 L (22-30) mmol/L BUN 44 H (7-17) mg/dL Creatinine 2.02 H (0.52-1.04) mg/dL Glucose 111 H (74-99) mg/dL Calcium (8.4-10.2) mg/dL Magnesium 0.5 L* (1.6-2.3) mg/dL Alkaline Phosphatase 141 H (38-126) U/L Urine Appearance (Clear) Urine Protein (Negative) Urine Blood (Negative) Ur Leukocyte Esterase (Negative) Urine RBC (0-5) /hpf Urine WBC (0-5) /hpf Stool Occult Blood Positive H (Negative) 02/20/22 02/20/22 02/20/22 Range/Units 05:39 05:39 05:39 WBC 12.5 H (3.8-10.6) k/uL RBC 3.24 L (3.80-5.40) m/uL Hgb 9.9 L (11.4-16.0) gm/dL Hct 30.7 L (34.0-46.0) % RDW 15.6 H (11.5-15.5) % Neutrophils # 9.1 H (1.3-7.7) k/uL Potassium (3.5-5.1) mmol/L Chloride 108 H (98-107) mmol/L Carbon Dioxide 20 L (22-30) mmol/L BUN 40 H (7-17) mg/dL Creatinine 1.83 H (0.52-1.04) mg/dL Glucose (74-99) mg/dL Calcium 7.9 L (8.4-10.2) mg/dL Magnesium 1.4 L (1.6-2.3) mg/dL Alkaline Phosphatase (38-126) U/L Urine Appearance (Clear) Urine Protein (Negative) Urine Blood (Negative) Ur Leukocyte Esterase (Negative) Urine RBC (0-5) /hpf Urine WBC (0-5) /hpf Stool Occult Blood (Negative) 02/20/22 Range/Units 09:23 WBC (3.8-10.6) k/uL RBC (3.80-5.40) m/uL Hgb (11.4-16.0) gm/dL Hct (34.0-46.0) % RDW (11.5-15.5) % Neutrophils # (1.3-7.7) k/uL Potassium (3.5-5.1) mmol/L Chloride (98-107) mmol/L Carbon Dioxide (22-30) mmol/L BUN (7-17) mg/dL Creatinine (0.52-1.04) mg/dL Glucose (74-99) mg/dL Calcium (8.4-10.2) mg/dL Magnesium (1.6-2.3) mg/dL Alkaline Phosphatase (38-126) U/L Urine Appearance Cloudy H (Clear) Urine Protein 1+ H (Negative) Urine Blood Large H (Negative) Ur Leukocyte Esterase Large H (Negative) Urine RBC >182 H (0-5) /hpf Urine WBC >182 H (0-5) /hpf Stool Occult Blood (Negative) Comments: EKG image reviewed Chest x-ray: report reviewed Assessment and Plan (1) Hematuria Narrative/Plan: Urine did show significant blood. Pt has been started on antibiotic for possible UTI. Urology has been consulted. Hgb failry close to baseline. Not clear if pt had bleeding per rectum also Current Visit: No Status: Acute Code(s): R31.9 - HEMATURIA, UNSPECIFIED SNOMED Code(s): 13224344 (2) Hematochezia Narrative/Plan: Occurrence not totally definite, though FOB was positive. Surgery consulted. Her last colonoscopy was several years prior. No plans to repeat endoscopy inpt unless there are definite recurrent symptoms. Current Visit: Yes Status: Acute Code(s): K92.1 - MELENA SNOMED Code(s): 321140255 (3) Non-small cell cancer of left lung Narrative/Plan: Recent dx, with w/u indicating locally advanced disease. The pt was seen by Dr Alfonso in the office on 02/04/22. She has had decline in PS and progressive dementia. It was d/w her and , her primary caregiver that she is not a candidate for surgery, based on stage. She is not felt to be a candidate for an aggressive approach like chemoRT , which would typically be recommended, either. Radiation and systemic targeted therapy, if she has an appropriate mutation may be a possibility. NGS for the same is pending. Comfort care was also discussed F/U with Dr Alfonso post d/c to make further decisions Current Visit: Yes Status: Acute Code(s): C34.92 - MALIGNANT NEOPLASM OF UNSP PART OF LEFT BRONCHUS OR LUNG SNOMED Code(s): 131400294
[2022-02-22] MEDS: SODIUM CHLORIDE 0.9% 1,000 ML IV SCH ×2 (05:18→19:43)
[2022-02-22 06:29] LABS: Glucose,Whole Blood 94 mg/dL (70-110)
[2022-02-22] MEDS: INSULIN ASPART (NovoLOG) 100 UNIT/ML VIAL SQ SCH ×4 (06:30→21:00)
[2022-02-22] MEDS: IPRATROPIUM-ALBUTEROL 3 ML NEB INHALATION SCH ×4 (08:09→19:12)
[2022-02-22] MEDS: HEPARIN SODIUM,PORCINE/PF 5,000 UNIT/0.5 ML SYRINGE SQ SCH ×2 (10:01→20:56)
[2022-02-22] MEDS: lamoTRIgine 25 MG TAB PO SCH ×2 (10:05→19:37)
[2022-02-22] MEDS: CITALOPRAM HYDROBROMIDE 20 MG TAB PO SCH (10:05)
[2022-02-22] MEDS: DONEPEZIL 10 MG TAB PO SCH (10:05)
[2022-02-22] MEDS: CARBIDOPA-LEVODOPA 25-100 MG 1 EACH TAB PO SCH ×2 (10:05→19:36)
[2022-02-22] MEDS: LORATADINE 10 MG TAB PO SCH (10:05)
[2022-02-22] MEDS: buPROPion 75 MG TAB PO SCH ×2 (10:05→19:37)
[2022-02-22] MEDS: FAMOTIDINE 20 MG TAB PO SCH (10:05)
[2022-02-22] MEDS: predniSONE 20 MG TAB PO SCH (10:05)
[2022-02-22] MEDS: METOPROLOL TARTRATE 25 MG TAB PO SCH ×2 (10:05→19:37)
[2022-02-22 11:48] LABS: Glucose,Whole Blood 132 mg/dL (70-110)
[2022-02-22 19:17] LABS: Glucose,Whole Blood 186 mg/dL (70-110)
[2022-02-22] MEDS: LEVOTHYROXINE 25 MCG TAB PO SCH (19:36)
[2022-02-22] MEDS: CHOLECALCIFEROL 25 MCG (1000 IU) TABLET PO SCH (19:37)
[2022-02-22] MEDS: ATORVASTATIN 10 MG TAB PO SCH (19:37)
[2022-02-22] MEDS: CYANOCOBALAMIN 500 MCG TAB PO SCH (19:37)
[2022-02-22] MEDS: MONTELUKAST 10 MG TAB PO SCH (19:37)
[2022-02-22 20:29] LABS: Glucose,Whole Blood 167 mg/dL (70-110)
[2022-02-22] MEDS: QUEtiapine 50 MG TAB PO SCH (21:00)
--- NOTE | 2022-02-22 21:16 | P.PN ---
Subjective Progress Note Date: 02/22/22 Principal diagnosis: GI bleed Is resting comfortably in bed. Family present at the bedside. She is tolerating her diet. Is resting comfortably in bed. Family present at the bedside. She is tolerating her diet. Hematuria has resolved as well. Denies abdominal pain. Objective - Vital Signs Vital signs: Vital Signs Temp 97.8 F 02/22/22 19:50 Pulse 84 02/22/22 19:50 Resp 18 02/22/22 19:50 BP 160/80 02/22/22 19:50 Pulse Ox 95 02/22/22 19:50 FiO2 Intake & Output 02/22/22 02/22/22 02/23/22 06:59 18:59 06:59 Intake Total 296 10 Output Total 200 Balance -200 296 10 Intake: IV 10 Invasive Line 2 10 Oral 296 Output: Urine 200 Other: Voiding Method Toilet Toilet # Voids 3 - Exam Abdomen: Soft, nontender, nondistended - Labs CBC & Chem 7: 02/20/22 05:39 02/20/22 05:39 Labs: Abnormal Lab Results - Last 24 Hours (Table) 02/22/22 02/22/22 02/22/22 Range/Units 11:46 16:56 20:27 POC Glucose (mg/dL) 132 H 186 H 167 H (70-110) mg/dL Microbiology - Last 24 Hours (Table) 02/20/22 09:23 Urine Culture - Final Urine,Voided Assessment and Plan (1) Hematochezia Narrative/Plan: Overall patient is doing well. Continue diet as tolerated. Overall patient is doing well. Continue diet as tolerated. We will sign off at this point. Recommend outpatient follow-up Current Visit: Yes Status: Acute Code(s): K92.1 - MELENA SNOMED Code(s): 216869638
[2022-02-23 06:17] LABS: Glucose,Whole Blood 98 mg/dL (70-110)
[2022-02-23] MEDS: INSULIN ASPART (NovoLOG) 100 UNIT/ML VIAL SQ SCH (06:29)
[2022-02-23 07:34] VITALS: BP 151/71; TEMP 97.7
[2022-02-23] MEDS: IPRATROPIUM-ALBUTEROL 3 ML NEB INHALATION SCH ×2 (07:43→11:19)
[2022-02-23] MEDS: CITALOPRAM HYDROBROMIDE 20 MG TAB PO SCH (09:17)
[2022-02-23] MEDS: DONEPEZIL 10 MG TAB PO SCH (09:17)
[2022-02-23] MEDS: predniSONE 20 MG TAB PO SCH (09:17)
[2022-02-23] MEDS: LORATADINE 10 MG TAB PO SCH (09:17)
[2022-02-23] MEDS: FAMOTIDINE 20 MG TAB PO SCH (09:18)
[2022-02-23] MEDS: METOPROLOL TARTRATE 25 MG TAB PO SCH (09:18)
[2022-02-23] MEDS: CARBIDOPA-LEVODOPA 25-100 MG 1 EACH TAB PO SCH (09:19)
[2022-02-23] MEDS: buPROPion 75 MG TAB PO SCH (09:19)
[2022-02-23] MEDS: lamoTRIgine 25 MG TAB PO SCH (09:20)
[2022-02-23] MEDS: HEPARIN SODIUM,PORCINE/PF 5,000 UNIT/0.5 ML SYRINGE SQ SCH (09:20)
[2022-02-23 09:31] LABS: Basophils # (A) 0.1 k/uL (0-0.2); Basophils % (A) 1 %; Eosinophils # (A) 0.2 k/uL (0-0.7); Eosinophils % (A) 1 %; Lymphocytes % (A) 24 %; MCH 29.2 pg (25.0-35.0); MCHC 31.2 g/dL (31.0-37.0); MCV 93.6 fL (80.0-100.0); Mean Platelet Volume 7.2; Monocytes # (A) 0.7 k/uL (0-1.0); Monocytes % (A) 5 %; Neutrophils # (A) 8.4 k/uL (1.3-7.7); Neutrophils % (A) 68 %; Platelet Count 237 k/uL (150-450); RBC 3.42 m/uL (3.80-5.40); RDW 15.7 % (11.5-15.5); WBC 12.5 k/uL (3.8-10.6)
[2022-02-23 09:34] VITALS: RESP 16
[2022-02-23 09:54] LABS: Albumin 3.8 g/dL (3.5-5.0); Calcium 9.4 mg/dL (8.4-10.2); Magnesium 1.2 mg/dL (1.6-2.3); Potassium 3.7 mmol/L (3.5-5.1); Total Bilirubin 0.2 mg/dL (0.2-1.3); Total Protein 6.9 g/dL (6.3-8.2)
[2022-02-23 10:02] VITALS: PULSE 82
[2022-02-23] MEDS: SODIUM CHLORIDE 0.9% 1,000 ML IV SCH (10:46)
--- NOTE | 2022-02-23 16:58 | P.DS ---
Providers Date of admission: 02/19/22 22:55 Expected date of discharge: 02/23/22 Attending physician: Mamadou Leonard MD Consults: 02/19/22 22:41 Consult Physician Routine Consulting Provider: Tim Gandara Consult Reason/Comments: Rectal bleeding Do you want consulting provider notified?: Already Contacted Consult Physician Routine Consulting Provider: Kerwin Alfonso Consult Reason/Comments: Lung mass Do you want consulting provider notified?: Yes, Notify in am 02/20/22 13:17 Consult Physician Routine Consulting Provider: Napoleon Reddy Consult Reason/Comments: Hematuria Do you want consulting provider notified?: Yes Primary care physician: Kavita Leonard [facility] Hospital Course: Final Diagnoses: -Hematuria, resolved, outpatient cystoscopy recommended per urology. Final u rine culture reported no growth. -Hematochezia, resolved. Evaluated by general surgery, suspecting perianal trauma secondary to large stool with constipation. No further significant bleeding. -Acute renal failure prerenal azotemia -COPD with acute exacerbation -Recently diagnosed left upper lobe adenocarcinoma -Prior nicotine dependence -Type 2 diabetes mellitus -Hyperlipidemia Hypertension -Hypothyroidism -Chronic kidney disease stage III Hospital course: This 81-year-old female with past medical history of left upper lobe adenocarcinoma recently diagnosed, admitted with rectal bleeding, acute COPD exacerbation and multiple other medical issues. Continue on IV antibiotics, gentle IV fluid hydration Hematuria resolved. Final urine culture reported no growth after 18 hours. Evaluated by urology, recommending patient follow-up in 1-2 weeks for outpatient cystoscopy for further evaluation. Evaluated by oncology and surgery. Tolerating diet, denies nausea vomiting or diarrhea. Denies abdominal pain. Cleared by all consults for discharge. Patient will be discharged home today in a stable condition with guarded prognosis. The impression and plan of care has been dictated as directed. : I performed a history and examination of this patient, discussed the same with the dictator. I agree with the dictator's note ,documented as a scribe. Any additional findings or plans will be noted. Patient Condition at Discharge: Stable Plan - Discharge Summary Discharge Rx Participant: No New Discharge Prescriptions: New predniSONE 10 mg PO DIRECTED #5 tab Continue Lisinopril [Prinivil] 5 mg PO DAILY@0900 Levothyroxine Sodium [Synthroid] 25 mcg PO DAILY@1300 metFORMIN HCL [Glucophage] 500 mg PO DAILY@1300 Ipratropium-Albuterol Nebulize [Duoneb 0.5 mg-3 mg/3 ml Soln] 3 ml INHALATION RT-QID Loratadine [Claritin] 20 mg PO DAILY@0900 Carbidopa/Levodopa [Carbidopa-Levodopa 25-100 Tab] 1 tab PO DAILY@0900 Ferrous Sulfate [Iron (65 MG Elemental)] 325 mg PO BID@0900,1800 Cyanocobalamin (Vitamin B-12) [Vitamin B-12] 1,000 mcg PO DAILY@1800 Cholecalciferol [Vitamin D3 (25 Mcg = 1000 Iu)] 50 mcg PO DAILY@1800 QUEtiapine [SEROquel] 50 mg PO DAILY@1800 Metoprolol Tartrate [Lopressor] 25 mg PO BID@0900,1800 lamoTRIgine [LaMICtal] 25 mg PO BID@0900,1800 buPROPion [Wellbutrin] 75 mg PO BID@0900,1800 Omeprazole 20 mg PO DAILY@0900 Citalopram Hydrobromide [CeleXA] 20 mg PO DAILY@0900 Carbidopa/Levodopa [Carbidopa-Levodopa 25-100 Tab] 2 tab PO DAILY@1300 Montelukast Sodium [Singulair] 10 mg PO DAILY@1800 amLODIPine [Norvasc] 5 mg PO DAILY@1300 Donepezil [Aricept] 10 mg PO DAILY@0900 Atorvastatin [Lipitor] 10 mg PO DAILY@1800 Clopidogrel [Plavix] 75 mg PO DAILY@0900 Discharge Medication List Levothyroxine Sodium [Synthroid] 25 mcg PO DAILY@1300 01/20/16 [History] Lisinopril [Prinivil] 5 mg PO DAILY@0900 01/20/16 [History] metFORMIN HCL [Glucophage] 500 mg PO DAILY@1300 01/20/16 [History] Ipratropium-Albuterol Nebulize [Duoneb 0.5 mg-3 mg/3 ml Soln] 3 ml INHALATION RT-QID 07/28/16 [History] Loratadine [Claritin] 20 mg PO DAILY@0900 07/28/16 [History] Carbidopa/Levodopa [Carbidopa-Levodopa 25-100 Tab] 1 tab PO DAILY@0901/25/22 [History] Carbidopa/Levodopa [Carbidopa-Levodopa 25-100 Tab] 2 tab PO DAILY@1300 01/25/22 [History] Cyanocobalamin (Vitamin B-12) [Vitamin B-12] 1,000 mcg PO DAILY@1800 01/25/22 [History] Donepezil [Aricept] 10 mg PO DAILY@89901/25/22 [History] Ferrous Sulfate [Iron (65 MG Elemental)] 325 mg PO BID@0900,1800 01/25/22 [History] Montelukast Sodium [Singulair] 10 mg PO DAILY@179901/25/22 [History] amLODIPine [Norvasc] 5 mg PO DAILY@1300 01/25/22 [History] Atorvastatin [Lipitor] 10 mg PO DAILY@179902/19/22 [History] Cholecalciferol [Vitamin D3 (25 Mcg = 1000 Iu)] 50 mcg PO DAILY@179902/19/22 [History] Citalopram Hydrobromide [CeleXA] 20 mg PO DAILY@89902/19/22 [History] Clopidogrel [Plavix] 75 mg PO DAILY@89902/19/22 [History] Metoprolol Tartrate [Lopressor] 25 mg PO BID@0900,1800 02/19/22 [History] Omeprazole 20 mg PO DAILY@89902/19/22 [History] QUEtiapine [SEROquel] 50 mg PO DAILY@179902/19/22 [History] buPROPion [Wellbutrin] 75 mg PO BID@0900,1800 02/19/22 [History] lamoTRIgine [LaMICtal] 25 mg PO BID@0900,179902/19/22 [History] predniSONE 10 mg PO DIRECTED #5 tab 02/23/22 [Rx] Follow up Appointment(s)/Referral(s): Mamadou Leonard MD [STAFF PHYSICIAN] - 02/25/22 2:00 pm Uziel Shaikh MD [STAFF PHYSICIAN] - 03/02/22 8:40 am Patient Instructions/Handouts: Pneumonia (DC) Activity/Diet/Wound Care/Special Instructions: At time of discharge, schedule follow-up appointment with Dr. Shaikh in 1-2 weeks for office cystoscopy. Discharge Disposition: HOME SELF-CARE
== END 2022-02-23 11:31 | disposition home or self-care (01) | DRG 190 ==
LOC: EC 16:27 → 3SCARD 22:55
PROVIDERS: ADMIT Family Medicine; ATTEND Family Medicine
DX: J44.0 Chronic obstructive pulmonary disease with (acute) lower respiratory infection (principal); J18.9 Pneumonia, unspecified organism; C34.12 Malignant neoplasm of upper lobe, left bronchus or lung; J98.11 Atelectasis; N17.9 Acute kidney failure, unspecified; R04.2 Hemoptysis; K62.5 Hemorrhage of anus and rectum; J44.1 Chronic obstructive pulmonary disease with (acute) exacerbation; E11.22 Type 2 diabetes mellitus with diabetic chronic kidney disease; F02.80 Dementia in other diseases classified elsewhere, unspecified severity, without behavioral disturbance, psychotic disturbance, mood disturbance, and anxiety; G20 Parkinson's disease; N18.30 Chronic kidney disease, stage 3 unspecified; I12.9 Hypertensive chronic kidney disease with stage 1 through stage 4 chronic kidney disease, or unspecified chronic kidney disease; F32.A Depression, unspecified; E03.9 Hypothyroidism, unspecified; Z95.828 Presence of other vascular implants and grafts; R31.0 Gross hematuria; K59.00 Constipation, unspecified; S39.81XA Other specified injuries of abdomen, initial encounter; M19.90 Unspecified osteoarthritis, unspecified site; F41.9 Anxiety disorder, unspecified; R53.1 Weakness; R09.02 Hypoxemia; E83.42 Hypomagnesemia; E78.5 Hyperlipidemia, unspecified; Z20.822 Contact with and (suspected) exposure to COVID-19; Z96.1 Presence of intraocular lens; Z79.02 Long term (current) use of antithrombotics/antiplatelets; Z79.84 Long term (current) use of oral hypoglycemic drugs; Z79.890 Hormone replacement therapy; Z79.899 Other long term (current) drug therapy; Z79.51 Long term (current) use of inhaled steroids; Z86.73 Personal history of transient ischemic attack (TIA), and cerebral infarction without residual deficits; Z86.19 Personal history of other infectious and parasitic diseases; Z87.440 Personal history of urinary (tract) infections; Z85.118 Personal history of other malignant neoplasm of bronchus and lung; Z98.82 Breast implant status; Z90.12 Acquired absence of left breast and nipple; Z98.41 Cataract extraction status, right eye; Z98.42 Cataract extraction status, left eye; Z98.61 Coronary angioplasty status; Z87.891 Personal history of nicotine dependence; Z80.0 Family history of malignant neoplasm of digestive organs; Z82.49 Family history of ischemic heart disease and other diseases of the circulatory system; Z85.3 Personal history of malignant neoplasm of breast
CPT/HCPCS: 36415; 71046; 80048; 80053; 81001; 82272; 83605; 83735; 84145; 84484; 85025; 85610; 85730; 86850; 86900; 86901; 87086; 87635; 93005; 94640; 94760; 96365; 96366; 96367; 96375; 99285